=== PATIENT | female | born 1960 | race African-American/Black ===

== ENCOUNTER → 2017-10-24 15:26 | Outpatient (CLI) | payer OTHER, SELFPAY | PROVIDERS: Family Provider Internal Medicine; PCP Internal Medicine; Visit Provider Nurse Practitioner | DX: M25.551 Pain in right hip (principal); M25.561 Pain in right knee | CPT/HCPCS: 73502; 73564 ==

== ENCOUNTER → 2018-01-10 16:05 | Outpatient (CLI) | payer OTHER, SELFPAY | PROVIDERS: Family Provider Internal Medicine; PCP Internal Medicine; Referring Provider Dermatology; Visit Provider Dermatology | DX: L02.821 Furuncle of head [any part, except face] (principal) | CPT/HCPCS: 87070; 87077; 87186; 87205 ==

== ENCOUNTER → 2018-02-23 10:32 | Outpatient (CLI) | payer OTHER, SELFPAY ==
--- OUTSIDE RECORDS SUMMARY | 2018-04-11 05:28 | XMS RPT_ITS ---
:1960 Author Organization OHIP Care Team Providers Name Role Phone NEIDA RADER (CHIEF HUMAN RESOURCES OFFICER) Attending Unavailable GANTA, JEANNIE Attending Unavailable GANTA, JEANNIE Referring Unavailable GANTA, JEANNIE Referring Unavailable GANTA, JEANNIE Referring Unavailable NICK JANE (CHIEF HUMAN RESOURCES OFFICER) Attending Unavailable GANTA, JEANNIE Referring Unavailable NICK JANE ([facility]) Referring Unavailable JOHNNA MORALES (PA) Attending Unavailable GANTA, JEANNIE Referring Unavailable JAMAL PHILLIPS Attending Unavailable JOHNNA MORALES (PA) Referring Unavailable NEIDA RADER (CHIEF HUMAN RESOURCES OFFICER) Referring Unavailable CADEN TRAYLOR (CHIEF HUMAN RESOURCES OFFICER) Referring Unavailable GANTA, JEANNIE Referring Unavailable Miah Andrew Attending Unavailable Miah Andrew Referring Unavailable Ganta, Jeannie Primary Care Unavailable Miah Andrew Attending Unavailable Miah Andrew Referring Unavailable Ganta, Jeannie Primary Care Unavailable Althea Muñoz Attending Unavailable Jeannie Ramirez Primary Care Unavailable Miah Andrew Attending Unavailable Miah Andrew Referring Unavailable Jeannie Ramirez Primary Care Unavailable PROBLEMS PROBLEMS DATE TYPE CONDITION / CODE ATTENDING STATUS SOURCE 03/28/2018 Active Other abnormal and NA Active [facility] inconclusive [facility] [place] findings on Repository diagnostic imaging of breast / R92.8(ICD-10) 03/21/2018 Unknown 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 / Hospital L66.8(ICD-10) Repository 03/21/2018 Unknown L30.8 - Other Miah Andrew Active [place] specified Community dermatitis / Hospital L30.8(ICD-10) Repository 03/21/2018 Unknown L27.0 - Miah Andrew Active [facility] Generalized skin Community eruption due to Hospital drugs and Repository medicaments taken internally / L27.0(ICD-10) 02/24/2018 Active Encounter for NA Active [facility] screening [facility] [place] mammogram for Repository malignant neoplasm of breast / Z12.31(ICD-10) 01/10/2018 Unknown L02.821 - Furuncle Miah Andrew Active [place] of head [any part, Community except face] / Hospital L02.821(ICD-10) Repository 01/10/2018 Unknown 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 Andrew Active [place]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, Community unspecified / Hospital L68.9(ICD-10) Repository 10/24/2017 Unknown M25.561 - Pain in Althea Muñoz Active [place] right knee / Community M25.561(ICD-10) Hospital Repository 10/24/2017 Unknown M25.551 - Pain in Althea Muñoz Active [facility] right hip / Community M25.551(ICD-10) Hospital Repository 06/19/2017 Active Snoring / NA Active [facility] R06.83(ICD-10) Other [place] Repository 06/19/2017 Active Other fatigue / NA Active [facility] R53.83(ICD-10) Other [place] Repository 06/19/2017 Active Menopausal and NA Active [facility] female climacteric Other [place] states / Repository N95.1(ICD-10) 05/03/2017 Active Other retirement NA Active [facility] (current) drug [facility] [place] therapy / Repository Z79.899(ICD-10) 05/03/2017 Active Abnormal weight NA Active [facility] gain / [facility] [place] R63.5(ICD-10) Repository 05/03/2017 Active Xerosis cutis / NA Active [facility] L85.3(ICD-10) [facility] [place] Repository 05/03/2017 Active Pain in right hip NA Active [facility] / M25.551(ICD-10) [facility] [place] Repository 04/08/2017 Active Unknown / DIOR, NEIDA Active [facility] UNK(Unknown) (CHIEF HUMAN RESOURCES OFFICER) [facility] [place] Repository PROCEDURES PROCEDURES No Procedure Records FoundRESULTS RESULTS [facility] Observed: 03/28/2018 Status: F Source: [place] 2:48 PM [facility] REPOSITORY * * *Final Report* * * DATE OF EXAM: Mar 28 2018 2:48PM WRW [id number] - [facility] RT / PROCEDURE REASON: Abnormal mammogram * * * * Physician Interpretation * * * * RESULT: #[id number] - [facility] RT UNILATERAL RIGHT DIGITAL DIAGNOSTIC MAMMOGRAM WITH CAD: 03/28/2018 HISTORY: Callback right / Abnormal Mammogram. RESULT: TECHNIQUE: The study was acquired using full field digital technology and interpreted from soft copy. Current study was also evaluated with a Computer Aided Detection (CAD). Comparison is made to exams dated: 02/24/2018 mammogram, 02/17/2017 mammogram, 02/16/2016 mammogram, and 02/13/2015 mammogram - [facility]. The tissue of right breast is heterogeneously dense. This may lower the sensitivity of mammography. Prior asymmetry is no longer seen in the right breast in the upper aspect. This is consistent with overlapping fibroglandular tissue. No significant masses, calcifications, or other findings are seen in the breast. IMPRESSION: There is no mammographic evidence of malignancy. A 1 year screening mammogram is recommended. Gabi mcintyre/toy:03/28/2018 14:48:00 Hairpiece Stylist(s): Cecilia Romano RT(R)(M), [facility] letter sent: Normal over 40 Mammogram BI-RADS: 1 Negative Multiple national specialty organizations have released breast cancer screening guidelines for women at average risk for developing breast cancer - guidelines that are based on both evidence and opinion, yet differ on when to start and how often to screen for breast cancer. With representation from Breast Imaging, Internal Medicine, Women's Health, Family Medicine, and Medical/Surgical Oncology, the [facility] has carefully reviewed the data and reached the following consensus: 1) All women should engage in shared decision-making with their providers to decide when to start and how often to screen; 2) All women should have the opportunity to start screening mammography at age 40; 3) For women ages 45-55, we recommend annual screening mammograms; 4) For women ages 55 and over, we support both the transition from an annual to a biennial interval if this aligns more with patient's values and preferences, or continuation with annual screening; 5) All women should discuss with their providers when to stop screening mammograms. Fermenter Champagne: Toy Transcribe Date/Time: Mar 28 2018 2:05P Dictated by: GABI HAMMONDS MD This examination was interpreted and the report reviewed and electronically signed by: GABI HAMMONDS MD on Mar 28 2018 2:48PM EST [id number] CNCO Observed: 03/28/2018 Status: COMPLETED Source: [place] 2:[address] [facility] [place] REPOSITORY HNO ID: [id number] Author: Mammography Coordinator Service: (none) Author Type: Physician Type: Letter Filed: 03/29/2018 11:32 PM Note Text: March 28, 2018 PID: [id number] Nena Goins [address] [place] [id number] Dear Ms. Goins, We are pleased to inform you that the results of your recent breast imaging exam on 03/28/2018 are normal. Your mammogram demonstrates that you have dense breast tissue, which could hide abnormalities. Dense breast tissue, in and of itself, is a relatively common condition. Therefore, this information is not provided to cause undue concern; rather, it is to raise your awareness and promote discussion with your health care provider regarding the presence of dense breast tissue in addition to other risk factors. Early detection of cancer is very important. We also understand recommendations regarding breast cancer screening are controversial. Please discuss with your primary care provider which strategy is best for you and whether a mammogram is right for you. Your imaging studies and report will be kept on file at [facility] as part of your permanent medical record and are available for your continuing care. Thank you for allowing us to help in meeting your health care needs. Sincerely, Dr. Hammonds Interpreting Radiologist [facility] (Normal over 40) PROGRESS Observed: 03/28/2018 Status: COMPLETED Source: [place] 2:23 PM [facility] REPOSITORY HNO ID: [id number] Author: Ileana Denton Service: (none) Author Type: (none) Type: Progress Notes Filed: 03/28/2018 2:23 PM Note Text: Radiology Service Progress Note PATIENT NAME: Nena Goins DATE OF SERVICE: March 28, 2018 TIME: 2:23 PM PATIENT IDENTITY VERIFICATION COMPLETED USING TWO (2) METHODS: Patient confirmed name verbally and Date of . PATIENT GENDER DATA: Female. status: : No status: NO. PATIENT RELEVANT IMPLANT DATA REVIEWED: Not Applicable RADIOLOGY DEPARTMENT: [facility] DATA: Not applicable SIGNED BY: Ileana Denton March 28, 2018 2:23 PM PROGRESS Observed: 03/24/2018 Status: COMPLETED Source: [place] 7:30 AM [facility] REPOSITORY HNO ID: [id number] Author: Shirley Salazar Service: (none) Author Type: Nurse Practitioner Type: Progress Notes Filed: 03/24/2018 7:51 AM Note Text: Subjective HPI Nena Goins is a 57 year old female who presents with cough, nasal congestion, sore throat. She has been sick for 2 + weeks. Her boss told her to come in today to be checked due to a frequent cough at work. She cannot wear her CPAP at night due to cough. Review of Systems Constitutional: Positive for fever (yesterday). HENT: Positive for congestion and sore throat. Negative for ear pain. Respiratory: Positive for cough and sputum production. Negative for shortness of breath. Cardiovascular: Negative. Negative for chest pain. Gastrointestinal: Negative. Musculoskeletal: Positive for back pain. Neurological: Positive for headaches. BP 130/90 Pulse 96 Temp 36.3 ?C (97.4 ?F) (Left Tympanic) Resp 16 Wt 94.3 kg (208 lb) SpO2 99% BMI 38.03 kg/m? PAST MEDICAL HISTORY Diagnosis Date - Esophageal reflux PAST SURGICAL HISTORY Procedure Laterality Date - COLONOSCOP W/ OR W/O [facility] SPEC 08/08/14 Colonoscopy - LIGATE FALLOPIAN TUBE Tubal ligation - REMOVAL OF TONSILS,<12 Y/O Tonsillectomy - REPAIR INCISIONAL HERNIA,REDUCIBLE AGE 7 Hernia repair, incisional - TOTAL ABDOM HYSTERECTOMY 2002 ovaries remain ALLERGIES Patient has no known allergies. MEDICATIONS ibuprofen (MOTRIN) 800 mg tablet TAKE 1 TABLET BY MOUTH EVERY 8 HOURS NEEDED FOR PAIN. TAKE WITH FOOD. COMPOUNDED PRESCRIPTION CPAP supplies Dx: G47.33 naproxen (NAPROSYN) 500 mg tablet Take 500 mg by mouth twice daily with meals. losartan-hydrochlorothiazide (HYZAAR) 50-12.5 mg per tablet Take 1 tablet by mouth once daily. CPAP Initiate Auto PAP @ 5-20 cm of water with humidification. Mask (per patient preference) optional chin strap (if indicated) , filters, tubing, humidifier and lifetime supplies. zolpidem (AMBIEN) 10 mg tab Take 1 tablet by mouth at bedtime as needed (for insomnia) for up to 30 days. clotrimazole (LOTRIMIN, CLOTRIM) 1 % cream Apply 1 application to affected area twice daily. Clotrimazole 1 % spry Apply 1 application to affected area daily at bedtime. cyclobenzaprine (FLEXERIL) 10 mg tablet Take 1 tablet by mouth twice daily as needed. FAMILY HISTORY Problem Relation Age of Onset - Diabetes Mother - Cancer Father cancer of prostate Social History Substance Use Topics - Smoking status: Former Smoker Packs/day: 0.50 Years: 5.00 Types: Cigarettes Quit date: 03/14/2009 - Smokeless tobacco: Never Used - Alcohol use No Objective Physical Exam Constitutional: She is well-developed, well-nourished, and in no distress. HENT: Right Ear: Tympanic membrane, external ear and ear canal normal. Left Ear: Tympanic membrane, external ear and ear canal normal. Nose: Nose normal. No mucosal edema or rhinorrhea. Mouth/Throat: Uvula is midline, oropharynx is clear and moist and mucous membranes are normal. No posterior oropharyngeal edema or posterior oropharyngeal erythema. Cardiovascular: Normal rate and regular rhythm. Pulmonary/Chest: Effort normal. No respiratory distress. She has decreased breath sounds in the right lower field and the left lower field. She has no wheezes. She has no rales. Frequent cough noted Neurological: She is alert. Skin: Skin is warm and dry. Nursing note and vitals reviewed. ASSESSMENT/PLAN: 1. Acute lower respiratory infection - ICD9: 519.8, ICD10: J22 - GUAIFENESIN 100 MG/5 ML ORAL LIQUID - AMOXICILLIN 400 MG/5 ML ORAL SUSPENSION - Follow-up with your PCP in 3-5 days if symptoms have not improved or sooner if symptoms worsen - Discussed red flags and need for immediate medical evaluation if any occur. - Discussed supportive care treatment with fluids, rest and analgesia. - Discussed expected course of illness Shirley Salazar APRN.CNP CNOV Observed: 03/24/2018 Status: COMPLETED Source: [place] 7:15 AM [facility] REPOSITORY Office Visit (WSTR) NENA GOINS ([id number]) 1960 F CHT Date Time Provider Department 03/24/18 7:15 AM SHIRLEY SALAZAR (ESTELITA) [facility] During your visit today, we recorded the following information about you: Temperature Pulse Respiration Blood pressure 97.4 degrees 96/minute 16/minute 130/90 Weight 94.3 kg Shirley Salazar APRN.CNP 03/24/2018 7:51 AM Signed Subjective HPI Nena Goins is a 57 year old female who presents with cough, nasal congestion, sore throat. She has been sick for 2 + weeks. Her boss told her to come in today to be checked due to a frequent cough at work. She cannot wear her CPAP at night due to cough. Review of Systems Constitutional: Positive for fever (yesterday). HENT: Positive for congestion and sore throat. Negative for ear pain. Respiratory: Positive for cough and sputum production. Negative for shortness of breath. Cardiovascular: Negative. Negative for chest pain. Gastrointestinal: Negative. Musculoskeletal: Positive for back pain. Neurological: Positive for headaches. BP 130/90 Pulse 96 Temp 36.3 ?C (97.4 ?F) (Left Tympanic) Resp 16 Wt 94.3 kg (208 lb) SpO2 99% BMI 38.03 kg/m? PAST MEDICAL HISTORY Diagnosis Date - Esophageal reflux PAST SURGICAL HISTORY Procedure Laterality Date - COLONOSCOP W/ OR W/O [facility] SPEC 08/08/14 Colonoscopy - LIGATE FALLOPIAN TUBE Tubal ligation - REMOVAL OF TONSILS,<12 Y/O Tonsillectomy - REPAIR INCISIONAL HERNIA,REDUCIBLE AGE 7 Hernia repair, incisional - TOTAL ABDOM HYSTERECTOMY 2002 ovaries remain ALLERGIES Patient has no known allergies. MEDICATIONS ibuprofen (MOTRIN) 800 mg tablet TAKE 1 TABLET BY MOUTH EVERY 8 HOURS NEEDED FOR PAIN. TAKE WITH FOOD. COMPOUNDED PRESCRIPTION CPAP supplies Dx: G47.33 naproxen (NAPROSYN) 500 mg tablet Take 500 mg by mouth twice daily with meals. losartan-hydrochlorothiazide (HYZAAR) 50-12.5 mg per tablet Take 1 tablet by mouth once daily. CPAP Initiate Auto PAP @ 5-20 cm of water with humidification. Mask (per patient preference) optional chin strap (if indicated) , filters, tubing, humidifier and lifetime supplies. zolpidem (AMBIEN) 10 mg tab Take 1 tablet by mouth at bedtime as needed (for insomnia) for up to 30 days. clotrimazole (LOTRIMIN, CLOTRIM) 1 % cream Apply 1 application to affected area twice daily. Clotrimazole 1 % spry Apply 1 application to affected area daily at bedtime. cyclobenzaprine (FLEXERIL) 10 mg tablet Take 1 tablet by mouth twice daily as needed. FAMILY HISTORY Problem Relation Age of Onset - Diabetes Mother - Cancer Father cancer of prostate Social History Substance Use Topics - Smoking status: Former Smoker Packs/day: 0.50 Years: 5.00 Types: Cigarettes Quit date: 03/14/2009 - Smokeless tobacco: Never Used - Alcohol use No Objective Physical Exam Constitutional: She is well-developed, well-nourished, and in no distress. HENT: Right Ear: Tympanic membrane, external ear and ear canal normal. Left Ear: Tympanic membrane, external ear and ear canal normal. Nose: Nose normal. No mucosal edema or rhinorrhea. Mouth/Throat: Uvula is midline, oropharynx is clear and moist and mucous membranes are normal. No posterior oropharyngeal edema or posterior oropharyngeal erythema. Cardiovascular: Normal rate and regular rhythm. Pulmonary/Chest: Effort normal. No respiratory distress. She has decreased breath sounds in the right lower field and the left lower field. She has no wheezes. She has no rales. Frequent cough noted Neurological: She is alert. Skin: Skin is warm and dry. Nursing note and vitals reviewed. ASSESSMENT/PLAN: 1. Acute lower respiratory infection - ICD9: 519.8, ICD10: J22 - GUAIFENESIN 100 MG/5 ML ORAL LIQUID - AMOXICILLIN 400 MG/5 ML ORAL SUSPENSION - Follow-up with your PCP in 3-5 days if symptoms have not improved or sooner if symptoms worsen - Discussed red flags and need for immediate medical evaluation if any occur. - Discussed supportive care treatment with fluids, rest and analgesia. - Discussed expected course of illness JÚNIOR Morillo APRN.CNP 03/24/2018 7:41 AM Signed ASSESSMENT/PLAN: 1. Acute lower respiratory infection - ICD9: 519.8, ICD10: J22 - GUAIFENESIN 100 MG/5 ML ORAL LIQUID - AMOXICILLIN 400 MG/5 ML ORAL SUSPENSION - Follow-up with your PCP in 3-5 days if symptoms have not improved or sooner if symptoms worsen - Discussed red flags and need for immediate medical evaluation if any occur. - Discussed supportive care treatment with fluids, rest and analgesia. - Discussed expected course of illness Shirley Salazar APRN.CNP Treatment for Upper Respiratory Tract Infections 1. Drink lots of fluids - at least one gallon of non-caffeinated liquids per day 2. Make sure you are eating well 3. Get plenty of rest - at least 8 hours of sleep per night for adults and more for children We do not have any medications that kill off these viruses. Antibiotics are used to treat bacterial infections; however, they are not active against viral infections. There are some things that might help you feel better, though. 1. Vaporizers, humidifiers, hot showers, and hot fluids help open respiratory and sinus passages 2. Sudafed is a safe and effective decongestant 3. Meagher Nasal [place] may offer relief of nasal and head congestion 4. Vasile's Vapor Rub placed on a hot towel and draped over the head may relieve congestion 5. Tylenol and Advil help control fevers and headaches 6. Salt water gargles help relieve sore throats 7. Chloraceptic spray or throat lozenges may also help relieve sore throat symptoms 8. Robitussin DM will help loosen up secretions and also provide relief from a cough You should see your doctor or return to the Urgent Care if: 1. You have fevers for longer than five days 2. You have fevers above 102 degrees 3. You are still sick after 10 days 4. You have shortness of breath or wheezing 5. After several days you are getting worse rather than better Referring Provider: SELF [200] Allergies As of Date: 03/24/2018 (No Known Allergies) Date Reviewed: 03/24/2018 Reviewed by: Shirley ([facility]) Martin - Fully Assessed Reason for Visit: URI [115] Primary Visit Diagnosis:Acute lower respiratory infection [J22] Order(s):guaiFENesin (ROBITUSSIN) 100 mg/5 mL syrupTake 10 mL by mouth four times daily as needed.Disp: 236 mLRfl: 0 amoxicillin (AMOXIL) 400 mg/5 mL suspensionTake 10 mL orally twice daily for 10 days.Disp: 200 mLRfl: 0 Prescriptions as of 03/24/2018 Sig: IBUPROFEN 800 MG TABLET TAKE 1 TABLET BY MOUTH EVERY * COMPOUNDED PRESCRIPTION CPAP supplies Dx: G47.33 NAPROXEN 500 MG TABLET Take 500 mg by mouth twice da* LOSARTAN 50 MG-HYDROCHLOROTHI* Take 1 tablet by mouth once d* CPAP Initiate Auto PAP @ 5- 20 cm o* ZOLPIDEM 10 MG TABLET Take 1 tablet by mouth at bed* GUAIFENESIN 100 MG/5 ML ORAL * Take 10 mL by mouth four time* AMOXICILLIN 400 MG/5 ML ORAL * Take 10 mL orally twice daily* CLOTRIMAZOLE 1 % TOPICAL CREAM Apply 1 application to affect* Patient not taking: Reported on 12/21/2017 CLOTRIMAZOLE 1 % TOPICAL SPRAY Apply 1 application to affect* Patient not taking: Reported on 12/21/2017 CYCLOBENZAPRINE 10 MG TABLET Take 1 tablet by mouth twice * Problem List As Of Date 03/24/2018 Noted Resolved DYSMENORRHEA [N94.6] SEBORRHEIC KERATOSIS NOS [L82.1] INVALID FOR* SEBORRHEIC KERATOSIS INFLAMED [L82.0] INVALID FOR* CHR SOLAR SKIN DAMAGE NOS [L57.8] INVALID FOR* ESOPHAGEAL REFLUX [K21.9] Obesity [E66.9] INVALID FOR* HLD (hyperlipidaemia) [E78.5] INVALID FOR* Special screening for malignant neoplasms, colo*INVALID FOR*2014 Bilateral low back pain with left-sided sciatic*INVALID FOR* Other instructions from your clinician: ASSESSMENT/PLAN: 1. Acute lower respiratory infection - ICD9: 519.8, ICD10: J22 - GUAIFENESIN 100 MG/5 ML ORAL LIQUID - AMOXICILLIN 400 MG/5 ML ORAL SUSPENSION - Follow-up with your PCP in 3-5 days if symptoms have not improved or sooner if symptoms worsen - Discussed red flags and need for immediate medical evaluation if any occur. - Discussed supportive care treatment with fluids, rest and analgesia. - Discussed expected course of illness Shirley Salazar APRN.CHIEF HUMAN RESOURCES OFFICER Treatment for Upper Respiratory Tract Infections 1. Drink lots of fluids - at least one gallon of non-caffeinated liquids per day 2. Make sure you are eating well 3. Get plenty of rest - at least 8 hours of sleep per night for adults and more for children We do not have any medications that kill off these viruses. Antibiotics are used to treat bacterial infections; however, they are not active against viral infections. There are some things that might help you feel better, though. 1. Vaporizers, humidifiers, hot showers, and hot fluids help open respiratory and sinus passages 2. Sudafed is a safe and effective decongestant 3. Meagher Nasal [place] may offer relief of nasal and head congestion 4. Vasile's Vapor Rub placed on a hot towel and draped over the head may relieve congestion 5. Tylenol and Advil help control fevers and headaches 6. Salt water gargles help relieve sore throats 7. Chloraceptic spray or throat lozenges may also help relieve sore throat symptoms 8. Robitussin DM will help loosen up secretions and also provide relief from a cough You should see your doctor or return to the Urgent Care if: 1. You have fevers for longer than five days 2. You have fevers above 102 degrees 3. You are still sick after 10 days 4. You have shortness of breath or wheezing 5. After several days you are getting worse rather than better Prescriptions ordered this encounter Disp Refills Start End GUAIFENESIN 100 MG/5 ML ORAL LIQUID 236 * 0 03/24/2018 Route: ORAL Sig: Take 10 mL by mouth four times daily as needed. AMOXICILLIN 400 MG/5 ML ORAL SUSPENS* 200 * 0 03/24/2018 Sig: Take 10 mL orally twice daily for 10 days. Letter Text Shirley Salazar APRN.CNP Urgent Care [address] [facility] [address] Dept: [phone] 03/24/2018 Nena Reinosos [address] [facility] [address] To Whom it May Concern: This is to certify that Nena Goins was seen at our office for medical care. Nena may return to work on Tuesday night 03/26/2018. If you have any questions please feel free to call. Sincerely: Shirley Salazar APRN.CHIEF HUMAN RESOURCES OFFICER Encounter Status:Closed by SHIRLEY SALAZAR on 03/24/18 Observed: 03/20/2018 Status: P Source: [place] CULTURE, WOUND 3:35 PM [facility] REPOSITORY Comments: POSTERIOR MID-PARIETAL SCALP Gram Stain Gram Stain Rare Gram positive cocci Rare Red Blood Cells Wound Culture #1,2 AND 3 Possible skin contamination, further Identification and sensitivity will be performed only by physician's request. #4 POSSIBLE FUNGUS - Further studies to follow from [facility] ORGANISM 1: Staphylococcus species Amount Growth Rare ORGANISM 2: Gram positive george Amount Growth Rare ORGANISM 3: Gram positive george Amount Growth Rare ORGANISM 4: Possible Fungus Amount Growth 1+ Performed By: #### [id number] #### [facility] [address] [place], [address] CNCO Observed: 02/24/2018 Status: COMPLETED Source: [place] 9:[address] [facility] REPOSITORY HNO ID: [id number] Author: Mammography Coordinator Service: (none) Author Type: Physician Type: Letter Filed: 02/27/2018 11:32 PM Note Text: February 24, 2018 PID: [id number] Nena Albrightgins [address] [place] [address] Dear Ms. Goins, Your recent breast imaging exam on 02/24/2018 showed a possible finding that requires additional imaging studies for a complete evaluation. Most such findings are probably benign (not cancer). Please call [phone] or EXT: [phone] to schedule an appointment for your additional imaging if you have not already done so. Your mammogram demonstrates that you have dense breast tissue, which could hide abnormalities. Dense breast tissue, in and of itself, is a relatively common condition. Therefore, this information is not provided to cause undue concern; rather, it is to raise your awareness and promote discussion with your health care provider regarding the presence of dense breast tissue in addition to other risk factors. Your breast images and report will be kept on file here as part of your permanent medical record and are available for your continuing care. Thank you for allowing us to help in meeting your health care needs. Sincerely, Dr. Starks Interpreting Radiologist [facility] (Additional imaging) [facility] SCREENING Observed: 02/24/2018 Status: F Source: [place] 8:[address] [facility] [place] REPOSITORY * * *Final Report* * * DATE OF EXAM: Feb 24 2018 8:43AM [facility] [id number] - [facility] SCREENING / PROCEDURE REASON: Encounter for screening mammogram for malignant neoplasm of breast * * * * Physician Interpretation * * * * RESULT: #[id number] - [facility] SCREENING BILATERAL DIGITAL SCREENING MAMMOGRAM WITH CAD: 02/24/2018 HISTORY: Encounter For Screening Mammogram For Malignant Neoplasm Of Breast /Screening Mammogram - patient reports NO breast symptoms /Priors available for comparison. RESULT: TECHNIQUE: The study was acquired using full field digital technology and interpreted from soft copy. Current study was also evaluated with a Computer Aided Detection (CAD). Comparison is made to exams dated: 02/17/2017 mammogram, 02/16/2016 mammogram, 02/13/2015 mammogram, 01/06/2012 mammogram, 01/08/2013 mammogram, and 02/12/2014 mammogram - [facility]. The tissue of both breasts is heterogeneously dense. This may lower the sensitivity of mammography. There is an asymmetry in the right breast middle depth upper region seen on the mediolateral oblique view only. No other significant masses, calcifications, or other findings are seen in either breast. IMPRESSION: INCOMPLETE: NEEDS ADDITIONAL IMAGING EVALUATION The asymmetry in the right breast is indeterminate. Additional views are recommended. Rory Starks M.D. pt/penrad:02/24/2018 09:17:26 Hairpiece Stylist(s): Jaqueline Levy RT(R)(M), [facility] letter sent: Additional Imaging Needed Mammogram BI-RADS: 0 Incomplete: needs additional imaging evaluation If this report indicates you need additional imaging, and it has NOT yet been performed, please call , to schedule. We sincerely thank you for choosing the [facility] for your breast imaging needs. Multiple national specialty organizations have released breast cancer screening guidelines for women at average risk for developing breast cancer - guidelines that are based on both evidence and opinion, yet differ on when to start and how often to screen for breast cancer. With representation from Breast Imaging, Internal Medicine, Women's Health, Family Medicine, and Medical/Surgical Oncology, the [facility] has carefully reviewed the data and reached the following consensus: 1) All women should engage in shared decision-making with their providers to decide when to start and how often to screen; 2) All women should have the opportunity to start screening mammography at age 40; 3) For women ages 45-55, we recommend annual screening mammograms; 4) For women ages 55 and over, we support both the transition from an annual to a biennial interval if this aligns more with patient's values and preferences, or continuation with annual screening; 5) All women should discuss with their providers when to stop screening mammograms. Fermenter Champagne: Toy Transcribe Date/Time: Feb 24 2018 8:27A Dictated by: RORY STARKS MD This examination was interpreted and the report reviewed and electronically signed by: RORY STARKS MD on Feb 24 2018 9:17AM EST [id number] Observed: 02/23/2018 Status: F Source: [place] CULTURE, WOUND 9:30 AM [facility] REPOSITORY Gram Stain Gram Stain 3+ Red Blood Cells Rare White Blood Cells No organisms seen Wound Culture ORGANISM 1: Pseudomonas aeroginosa Amount Growth 2+ Pseudomonas aeroginosa: REACTION Cefepime $ 2 S Ceftazidime *NF 4 S Ciprofloxacin $ <=0.25 S Gentamicin $ 2 S Imipenem *NF 2 S Levofloxacin $ 0.5 S Piperacillin/Tazobactam $$ 8 S Tobramycin $ <=1 S (NF) indicates non-formulary drug at [facility]. Approval by Infectious Disease Specialist required before non-formulary drugs may be ordered and/or dispensed. Performed By: #### [id number] #### [facility] [address] [place], [address] PROGRESS Observed: 02/10/2018 Status: COMPLETED Source: [place] 10:[address] [facility] [place] REPOSITORY HNO ID: [id number] Author: Nitin Box Service: (none) Author Type: Physician Type: Progress Notes Filed: 02/10/2018 10:17 AM Note Text: Patient presents with: Rash HPI: Rash: Location: Right neck below the chin Duration: 1 week Pruritis: Yes Pain: No Change: Turning darker, slight downward spread Bleeding/ulceration/blister/pustule: Small pimples Contacts with rash: No Exposure: New laundry soap. Outdoor exposure: No. Recent illness: No. Treatment: Camphofenique, hydrocortisone MEDICATIONS: ibuprofen (MOTRIN) 800 mg tablet TAKE 1 TABLET BY MOUTH EVERY 8 HOURS NEEDED FOR PAIN. TAKE WITH FOOD. COMPOUNDED PRESCRIPTION CPAP supplies Dx: G47.33 naproxen (NAPROSYN) 500 mg tablet Take 500 mg by mouth twice daily with meals. losartan-hydrochlorothiazide (HYZAAR) 50-12.5 mg per tablet Take 1 tablet by mouth once daily. CPAP Initiate Auto PAP @ 5-20 cm of water with humidification. Mask (per patient preference) optional chin strap (if indicated) , filters, tubing, humidifier and lifetime supplies. zolpidem (AMBIEN) 10 mg tab Take 1 tablet by mouth at bedtime as needed (for insomnia) for up to 30 days. cyclobenzaprine (FLEXERIL) 10 mg tablet Take 1 tablet by mouth twice daily as needed. clotrimazole (LOTRIMIN, CLOTRIM) 1 % cream Apply 1 application to affected area twice daily. Clotrimazole 1 % spry Apply 1 application to affected area daily at bedtime. ALLERGIES: ALLERGIES No Known Allergies VITALS: BP 122/80 Pulse 79 Temp 36.4 ?C (97.6 ?F) (Left Tympanic) Resp 16 Wt 96.2 kg (212 lb) BMI 38.77 kg/m? PHYSICAL EXAM: GEN: pleasant, no acute distress, alert SKIN: 2cm patch right submandibular triangle of neck. Mild hyperpigmentation. Fine scale. Slight hypertrophy at 1/2 of the border. ASSESSMENT/PLAN: 1. Rash - ICD9: 782.1, ICD10: R21 Suspect tinea corporis. - CLOTRIMAZOLE 1 % TOPICAL CREAM x 2 weeks. F/u for re-evaluation if not improving. Nitin Box MD CNOV Observed: 02/10/2018 Status: COMPLETED Source: [place] 10:00 AM [facility] REPOSITORY Office Visit (WSTR) NENA GOINS ([id number]) 1960 F T Date Time Provider Department 02/10/18 10:00 AM NITIN BOX [facility] During your visit today, we recorded the following information about you: Temperature Pulse Respiration Blood pressure 97.6 degrees 79/minute 16/minute 122/80 Weight 96.2 kg Nitin Box MD 02/10/2018 10:17 AM Signed Patient presents with: Rash HPI: Rash: Location: Right neck below the chin Duration: 1 week Pruritis: Yes Pain: No Change: Turning darker, slight downward spread Bleeding/ulceration/blister/pustule: Small pimples Contacts with rash: No Exposure: New laundry soap. Outdoor exposure: No. Recent illness: No. Treatment: Camphofenique, hydrocortisone MEDICATIONS: ibuprofen (MOTRIN) 800 mg tablet TAKE 1 TABLET BY MOUTH EVERY 8 HOURS NEEDED FOR PAIN. TAKE WITH FOOD. COMPOUNDED PRESCRIPTION CPAP supplies Dx: G47.33 naproxen (NAPROSYN) 500 mg tablet Take 500 mg by mouth twice daily with meals. losartan-hydrochlorothiazide (HYZAAR) 50-12.5 mg per tablet Take 1 tablet by mouth once daily. CPAP Initiate Auto PAP @ 5-20 cm of water with humidification. Mask (per patient preference) optional chin strap (if indicated) , filters, tubing, humidifier and lifetime supplies. zolpidem (AMBIEN) 10 mg tab Take 1 tablet by mouth at bedtime as needed (for insomnia) for up to 30 days. cyclobenzaprine (FLEXERIL) 10 mg tablet Take 1 tablet by mouth twice daily as needed. clotrimazole (LOTRIMIN, CLOTRIM) 1 % cream Apply 1 application to affected area twice daily. Clotrimazole 1 % spry Apply 1 application to affected area daily at bedtime. ALLERGIES: ALLERGIES No Known Allergies VITALS: BP 122/80 Pulse 79 Temp 36.4 ?C (97.6 ?F) (Left Tympanic) Resp 16 Wt 96.2 kg (212 lb) BMI 38.77 kg/m? PHYSICAL EXAM: GEN: pleasant, no acute distress, alert SKIN: 2cm patch right submandibular triangle of neck. Mild hyperpigmentation. Fine scale. Slight hypertrophy at 1/2 of the border. ASSESSMENT/PLAN: 1. Rash - ICD9: 782.1, ICD10: R21 Suspect tinea corporis. - CLOTRIMAZOLE 1 % TOPICAL CREAM x 2 weeks. F/u for re-evaluation if not improving. Nitin Box MD Referring Provider: SELF [200] Allergies As of Date: 02/10/2018 (No Known Allergies) Date Reviewed: 02/10/2018 Reviewed by: Elizabeth Virk Ma - Fully Assessed Reason for Visit: Rash [1087] Primary Visit Diagnosis:Rash [R21] Order(s):clotrimazole (LOTRIMIN, CLOTRIM) 1 % creamApply 1 application to affected area twice daily for 14 days.Disp: 14 gRfl: 0 Prescriptions as of 02/10/2018 Sig: IBUPROFEN 800 MG TABLET TAKE 1 TABLET BY MOUTH EVERY * COMPOUNDED PRESCRIPTION CPAP supplies Dx: G47.33 NAPROXEN 500 MG TABLET Take 500 mg by mouth twice da* LOSARTAN 50 MG-HYDROCHLOROTHI* Take 1 tablet by mouth once d* CPAP Initiate Auto PAP @ 5- 20 cm o* ZOLPIDEM 10 MG TABLET Take 1 tablet by mouth at bed* CYCLOBENZAPRINE 10 MG TABLET Take 1 tablet by mouth twice * CLOTRIMAZOLE 1 % TOPICAL CREAM Apply 1 application to affect* CLOTRIMAZOLE 1 % TOPICAL CREAM Apply 1 application to affect* Patient not taking: Reported on 12/21/2017 CLOTRIMAZOLE 1 % TOPICAL SPRAY Apply 1 application to affect* Patient not taking: Reported on 12/21/2017 Problem List As Of Date 02/10/2018 Noted Resolved DYSMENORRHEA [N94.6] SEBORRHEIC KERATOSIS NOS [L82.1] INVALID FOR* SEBORRHEIC KERATOSIS INFLAMED [L82.0] INVALID FOR* CHR SOLAR SKIN DAMAGE NOS [L57.8] INVALID FOR* ESOPHAGEAL REFLUX [K21.9] Obesity [E66.9] INVALID FOR* HLD (hyperlipidaemia) [E78.5] INVALID FOR* Special screening for malignant neoplasms, colo*INVALID FOR*2014 Bilateral low back pain with left-sided sciatic*INVALID FOR* Prescriptions ordered this encounter Disp Refills Start End CLOTRIMAZOLE 1 % TOPICAL CREAM 14 g 0 02/10/2018 02/24/2018 Route: TOPICAL Sig: Apply 1 application to affected area twice daily for 14 days. Encounter Status:Closed by NITIN BOX MD on 02/10/18 Observed: 01/10/2018 Status: F Source: [place] CULTURE, WOUND 2:15 PM [facility] REPOSITORY Gram Stain Gram Stain No organisms seen Wound Culture Clinical correlation necessary, Possible skin contamination. ORGANISM 1: Staphylococcus epidermidis Amount Growth 1+ Staphylococcus epidermidis: REACTION Benzylpenicillin NF >=0.5 R Cefoxitin *NF + Clindamycin $$ <=0.25 S Inducable Clindamycin Resistan - Erythromycin $ >=8 R Gentamicin $ <=0.5 S Levofloxacin $ <=0.12 S Linezolid $$$$ 1 S Oxacillin NF >=4 R Tigecycline $$$$ <=0.12 S Rifampin $$ <=0.5 S Tetracycline NF 2 S Vancomycin $ 1 S (NF) indicates non-formulary drug at [facility]. Approval by Infectious Disease Specialist required before non-formulary drugs may be ordered and/or dispensed. * CLSI guidelines does not recommend testing of cephalosporins. This interpretation is deduced from Beta-lactam/penicillin results. Performed By: #### [id number] #### [facility] [address] [place], [address] [facility] Observed: 01/04/2018 Status: COMPLETED Source: [place] 12:00 AM [facility] REPOSITORY Telephone (INTMWS) NENA GOINS ([id number]) 1960 F CHT Date Time Provider Department 01/04/18 JEANNIE RAMIREZ INTMWS During your visit today, we recorded the following information about you: Tamiko Torrez LPN 01/04/2018 9:53 AM Signed [facility] calling. Stating that patient requested CPAP supplies from them. They do not have a current order for patient and are asking that an order be faxed along with patients demographics to [phone], att: In take. Please advise. JEANNIE RAMIREZ MD 01/04/2018 1:07 PM Signed Filed order Thank you uAdrey Jurado LPN 01/04/2018 1:57 PM Signed Needing order for Cpap supplies only, order pending. Edgar Spangler LPN 01/04/2018 5:05 PM Signed order and demographics faxed to number given. Edgar Spangler LPN 01/05/2018 9:13 AM Signed Order for CPAP supplies faxed to number given Edgar Skinner, RN, RN 01/05/2018 10:59 AM Signed Pt calls, asking is orders have been faxed. Advised order was faxed this morning. Pt verbalizes understanding. Allergies As of Date: 01/04/2018 (No Known Allergies) Date Reviewed: 12/21/2017 Reviewed by: Alexa Smith Ma - Fully Assessed Reason for Visit: Orders [681] Visit Diagnosis:SARA (obstructive sleep apnea) [G47.33] Order(s):CPAP DEVICE, WITH HUMIDIFIER [[id number]] Order #: [id number] COMPOUNDED PRESCRIPTIONCPAP supplies Dx: G47.33Disp: 1 BoxRfl: 99 Prescriptions as of 01/04/2018 Sig: COMPOUNDED PRESCRIPTION CPAP supplies Dx: G47.33 NAPROXEN 500 MG TABLET Take 500 mg by mouth twice da* IBUPROFEN 800 MG TABLET TAKE 1 TABLET BY MOUTH EVERY * LOSARTAN 50 MG-HYDROCHLOROTHI* Take 1 tablet by mouth once d* CLOTRIMAZOLE 1 % TOPICAL CREAM Apply 1 application to affect* Patient not taking: Reported on 12/21/2017 CLOTRIMAZOLE 1 % TOPICAL SPRAY Apply 1 application to affect* Patient not taking: Reported on 12/21/2017 CPAP Initiate Auto PAP @ 5- 20 cm o* ZOLPIDEM 10 MG TABLET Take 1 tablet by mouth at bed* CYCLOBENZAPRINE 10 MG TABLET Take 1 tablet by mouth twice * Problem List As Of Date 01/04/2018 Noted Resolved DYSMENORRHEA [N94.6] SEBORRHEIC KERATOSIS NOS [L82.1] INVALID FOR* SEBORRHEIC KERATOSIS INFLAMED [L82.0] INVALID FOR* CHR SOLAR SKIN DAMAGE NOS [L57.8] INVALID FOR* ESOPHAGEAL REFLUX [K21.9] Obesity [E66.9] INVALID FOR* HLD (hyperlipidaemia) [E78.5] INVALID FOR* Special screening for malignant neoplasms, colo*INVALID FOR*2014 Bilateral low back pain with left-sided sciatic*INVALID FOR* Prescriptions ordered this encounter Disp Refills Start End COMPOUNDED PRESCRIPTION 1 Box 99 01/04/2018 Class: Print RX Sig: CPAP supplies Dx: G47.33 Encounter Status:Closed by EDGAR SPANGLER LPN on 01/05/18 PROGRESS Observed: 12/21/2017 Status: COMPLETED Source: [place] 10:[address] [facility] [place] REPOSITORY HNO ID: [id number] Author: Jamal Phillips V Service: (none) Author Type: Physician Type: Progress Notes Filed: 12/21/2017 10:29 AM Note Text: JOHNNA MORALES PA-C [address] [facility] [address] Ms. Goins is a 57 year old female that presents today complaining of hip problems on the right side for the last 9 months. She claims that there is no specific incident that brought on this pain. The pain is described as chronic located in the buttocks and outer aspect of the hip. Patient states that her pain level is a number 7 on a scale of 1-10 Denies low back pain. Patient reports difficulty with standing and walking. ALLERGIES: Patient has no known allergies. MEDICATIONS: Current Outpatient Prescriptions: naproxen (NAPROSYN) 500 mg tablet Take 500 mg by mouth twice daily with meals. ibuprofen (MOTRIN) 800 mg tablet TAKE 1 TABLET BY MOUTH EVERY 8 HOURS NEEDED FOR PAIN. TAKE WITH FOOD. losartan-hydrochlorothiazide (HYZAAR) 50-12.5 mg per tablet Take 1 tablet by mouth once daily. CPAP Initiate Auto PAP @ 5-20 cm of water with humidification. Mask (per patient preference) optional chin strap (if indicated) , filters, tubing, humidifier and lifetime supplies. zolpidem (AMBIEN) 10 mg tab Take 1 tablet by mouth at bedtime as needed (for insomnia) for up to 30 days. cyclobenzaprine (FLEXERIL) 10 mg tablet Take 1 tablet by mouth twice daily as needed. clotrimazole (LOTRIMIN, CLOTRIM) 1 % cream Apply 1 application to affected area twice daily. (Patient not taking: Reported on 12/21/2017 ) Clotrimazole 1 % spry Apply 1 application to affected area daily at bedtime. (Patient not taking: Reported on 12/21/2017 ) No current facility-administered medications for this visit. MEDICAL HISTORY: PAST MEDICAL HISTORY Diagnosis Date - Esophageal reflux SURGICAL HISTORY: PAST SURGICAL HISTORY Procedure Laterality Date - COLONOSCOP W/ OR W/O [facility] SPEC 08/08/14 Colonoscopy - LIGATE FALLOPIAN TUBE Tubal ligation - REMOVAL OF TONSILS,<12 Y/O Tonsillectomy - REPAIR INCISIONAL HERNIA,REDUCIBLE AGE 7 Hernia repair, incisional - TOTAL ABDOM HYSTERECTOMY 2003 ovaries remain FAMILY HISTORY: FAMILY HISTORY Problem Relation Age of Onset - Diabetes Mother - Cancer Father cancer of prostate SOCIAL HISTORY: Social History Marital status: Spouse name: Gold Years of education: Number of children: 1 Occupational History Occupation Employer Comment [employer]* Social History Main Topics Smoking status: Former Smoker Packs/day: 0.50 Years: 5.00 Types: Cigarettes Quit date: 03/14/2009 Smokeless tobacco: Never Used Alcohol use: No Drug use: No Sexual activity: Yes Partners with: Male control/protection: Tubal Ligation, Surgical Comment: hysterectomy PHYSICAL ASSESSMENT: The Pt walks with a normal gait B/l LE have Nl Alignment The Left hip reveals no hip flexion contracture, 0-100 degrees of flexion, Internal Rotation to 20 degrees in flexion and external rotation to 45 degrees in flexion. Abduction to 45 degrees and adduction to 20 degrees. There is no pain with palpation over the ischial tuberosity or the greater trochanter. The Right hip reveals no hip flexion contracture, 0-100 degrees of flexion, Internal Rotation to 20 degrees in flexion and external rotation to 45 degrees in flexion. Abduction to 45 degrees and adduction to 20 degrees. There is pain with palpation over the posterior aspect of the greater trochanter and gluteus medius tendon insertion. EHL 5/5 DF 5/5 PF 5/5 DP Pulses 2/2 PT Pulses 2/2 RADIOGRAPH: no acute abnormality noted ASSESSMENT: gluteus medius tendonitis right hip PLAN: Physical exam reviewed there are no apparent changes since last visit. Risks, benefits, alternatives and personnel discussed with patient who consents to proceed. Patient wished to proceed. 6 mg celestone with 2cc, 1% lidocaine and 2cc .5% marcaine was injected. Injection was carried out under sterile conditions through a POSTERIOR site into the trochanteric bursae. Patient had no immediate complications and tolerated the procedure well. Handout given for home stretching and strengthening exercises for hip conditioning. Jamal Phillips DO PROGRESS Observed: 12/21/2017 Status: COMPLETED Source: [place] 9:50 AM [facility] REPOSITORY [facility] ID: [id number] Author: Alexa Smith Ma Service: (none) Author Type: (none) Type: Progress Notes Filed: 12/21/2017 10:29 AM Note Text: Patient presents with: New Patient: Right hip pain - Ref. Johnna CROWELL ROOMING INTAKE FLOWSHEET DATA Risk Screening Do you have concerns about personal safety or safety in the home?: No Pain Pain Score: 7/10 Pain Location: Hip-Right Description: Sharp, Aching Duration Amount of Time: 9 Duration Units: Months Frequency: Continuous Intervention: Medication Patient states she is having lateral right hip pain that is radiating down her leg. Referred here for an injection. Taking Naprosyn for the pain helps dull the pain. X-rays done on 05/03/17. 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 CNOV Observed: 12/21/2017 Status: COMPLETED Source: [place] 9:[address] [facility] [place] REPOSITORY Office Visit () NENA GOINS ([id number]) 1960 [facility] Date Time Provider Department 12/21/17 9:40 AM JAMAL PHILLIPS During your visit today, we recorded the following information about you: Alexa Smith Ma 12/21/2017 10:29 AM Signed Patient presents with: New Patient: Right hip pain - Ref. Johnna Morales AMB ROOMING INTAKE FLOWSHEET DATA Risk Screening Do you have concerns about personal safety or safety in the home?: No Pain Pain Score: 7/10 Pain Location: Hip-Right Description: Sharp, Aching Duration Amount of Time: 9 Duration Units: Months Frequency: Continuous Intervention: Medication Patient states she is having lateral right hip pain that is radiating down her leg. Referred here for an injection. Taking Naprosyn for the pain helps dull the pain. X-rays done on 05/03/17. 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 Jamal Phillips DO 12/21/2017 10:29 AM Signed JOHNNA MORALES PA-C [address] [facility] [address] Ms. Goins is a 57 year old female that presents today complaining of hip problems on the right side for the last 9 months. She claims that there is no specific incident that brought on this pain. The pain is described as chronic located in the buttocks and outer aspect of the hip. Patient states that her pain level is a number 7 on a scale of 1-10 Denies low back pain. Patient reports difficulty with standing and walking. ALLERGIES: Patient has no known allergies. MEDICATIONS: Current Outpatient Prescriptions: naproxen (NAPROSYN) 500 mg tablet Take 500 mg by mouth twice daily with meals. ibuprofen (MOTRIN) 800 mg tablet TAKE 1 TABLET BY MOUTH EVERY 8 HOURS NEEDED FOR PAIN. TAKE WITH FOOD. losartan-hydrochlorothiazide (HYZAAR) 50-12.5 mg per tablet Take 1 tablet by mouth once daily. CPAP Initiate Auto PAP @ 5-20 cm of water with humidification. Mask (per patient preference) optional chin strap (if indicated) , filters, tubing, humidifier and lifetime supplies. zolpidem (AMBIEN) 10 mg tab Take 1 tablet by mouth at bedtime as needed (for insomnia) for up to 30 days. cyclobenzaprine (FLEXERIL) 10 mg tablet Take 1 tablet by mouth twice daily as needed. clotrimazole (LOTRIMIN, CLOTRIM) 1 % cream Apply 1 application to affected area twice daily. (Patient not taking: Reported on 12/21/2017 ) Clotrimazole 1 % spry Apply 1 application to affected area daily at bedtime. (Patient not taking: Reported on 12/21/2017 ) No current facility-administered medications for this visit. MEDICAL HISTORY: PAST MEDICAL HISTORY Diagnosis Date - Esophageal reflux SURGICAL HISTORY: PAST SURGICAL HISTORY Procedure Laterality Date - COLONOSCOP W/ OR W/O [facility] SPEC 08/08/14 Colonoscopy - LIGATE FALLOPIAN TUBE Tubal ligation - REMOVAL OF TONSILS,<12 Y/O Tonsillectomy - REPAIR INCISIONAL HERNIA,REDUCIBLE AGE 7 Hernia repair, incisional - TOTAL ABDOM HYSTERECTOMY 2002 ovaries remain FAMILY HISTORY: FAMILY HISTORY Problem Relation Age of Onset - Diabetes Mother - Cancer Father cancer of prostate SOCIAL HISTORY: Social History Marital status: Spouse name: Gold Years of education: Number of children: 1 Occupational History Occupation Employer Comment [employer] P* Social History Main Topics Smoking status: Former Smoker Packs/day: 0.50 Years: 5.00 Types: Cigarettes Quit date: 03/14/2009 Smokeless tobacco: Never Used Alcohol use: No Drug use: No Sexual activity: Yes Partners with: Male control/protection: Tubal Ligation, Surgical Comment: hysterectomy PHYSICAL ASSESSMENT: The Pt walks with a normal gait B/l LE have Nl Alignment The Left hip reveals no hip flexion contracture, 0-100 degrees of flexion, Internal Rotation to 20 degrees in flexion and external rotation to 45 degrees in flexion. Abduction to 45 degrees and adduction to 20 degrees. There is no pain with palpation over the ischial tuberosity or the greater trochanter. The Right hip reveals no hip flexion contracture, 0-100 degrees of flexion, Internal Rotation to 20 degrees in flexion and external rotation to 45 degrees in flexion. Abduction to 45 degrees and adduction to 20 degrees. There is pain with palpation over the posterior aspect of the greater trochanter and gluteus medius tendon insertion. EHL 5/5 DF 5/5 PF 5/5 DP Pulses 2/2 PT Pulses 2/2 RADIOGRAPH: no acute abnormality noted ASSESSMENT: gluteus medius tendonitis right hip PLAN: Physical exam reviewed there are no apparent changes since last visit. Risks, benefits, alternatives and personnel discussed with patient who consents to proceed. Patient wished to proceed. 6 mg celestone with 2cc, 1% lidocaine and 2cc .5% marcaine was injected. Injection was carried out under sterile conditions through a POSTERIOR site into the trochanteric bursae. Patient had no immediate complications and tolerated the procedure well. Handout given for home stretching and strengthening exercises for hip conditioning. Jamal Phillips DO Referring Provider: JOHNNA MORALES(INGA) [[id number]] Allergies As of Date: 12/21/2017 (No Known Allergies) Date Reviewed: 12/21/2017 Reviewed by: Alexa Smith Ma - Fully Assessed Reason for Visit: New Patient [172] Cmt: Right hip pain - Ref. Johnna Morales Primary Visit Diagnosis:Tendinopathy of right gluteus medius [M67.98] Order(s):[] betamethasone acetate-betamethasone sodium phosphate 6 mg injection (CELESTONE)Disp: Rfl: Prescriptions as of 12/21/2017 Sig: NAPROXEN 500 MG TABLET Take 500 mg by mouth twice da* IBUPROFEN 800 MG TABLET TAKE 1 TABLET BY MOUTH EVERY * LOSARTAN 50 MG-HYDROCHLOROTHI* Take 1 tablet by mouth once d* CPAP Initiate Auto PAP @ 5- 20 cm o* ZOLPIDEM 10 MG TABLET Take 1 tablet by mouth at bed* CYCLOBENZAPRINE 10 MG TABLET Take 1 tablet by mouth twice * CLOTRIMAZOLE 1 % TOPICAL CREAM Apply 1 application to affect* Patient not taking: Reported on 12/21/2017 CLOTRIMAZOLE 1 % TOPICAL SPRAY Apply 1 application to affect* Patient not taking: Reported on 12/21/2017 Problem List As Of Date 12/21/2017 Noted Resolved DYSMENORRHEA [N94.6] SEBORRHEIC KERATOSIS NOS [L82.1] INVALID FOR* SEBORRHEIC KERATOSIS INFLAMED [L82.0] INVALID FOR* CHR SOLAR SKIN DAMAGE NOS [L57.8] INVALID FOR* ESOPHAGEAL REFLUX [K21.9] Obesity [E66.9] INVALID FOR* HLD (hyperlipidaemia) [E78.5] INVALID FOR* Special screening for malignant neoplasms, colo*INVALID FOR*2014 Bilateral low back pain with left-sided sciatic*INVALID FOR* Prescriptions ordered this encounter Disp Refills Start End BETAMETHASONE ACETATE AND SODIUM BENSON* 12/21/2017 12/21/2017 Route: OTHER Encounter Status:Closed by JAMAL PHILLIPS DO, V on 12/21/17 PROGRESS Observed: 12/16/2017 Status: COMPLETED Source: [place] 2:[address] [facility] [place] REPOSITORY HNO ID: [id number] Author: Susan Morales Service: (none) Author Type: Physician Automatic Pattern Edger Type: Progress Notes Filed: 12/16/2017 3:10 PM Note Text: 12/16/2017 Patient presents with: Pain: Patient is here for right hip pain SUBJECTIVE: This is a 57 year old that is here today for Above Complaints.. Patient with chronic R hip pain for about 2 years Has seen PCP for this. Would like to get FMLA for intermittent leave due to pain. Once a week if needed Started Physical Therapy years ago but didn't stick with it. She works 12 hour shifts and some days the pain becomes unbearable. PAST MEDICAL HISTORY Diagnosis Date - Esophageal reflux ALLERGIES Patient has no known allergies. MEDICATIONS Current Outpatient Prescriptions: ibuprofen (MOTRIN) 800 mg tablet TAKE 1 TABLET BY MOUTH EVERY 8 HOURS NEEDED FOR PAIN. TAKE WITH FOOD. losartan-hydrochlorothiazide (HYZAAR) 50-12.5 mg per tablet Take 1 tablet by mouth once daily. clotrimazole (LOTRIMIN, CLOTRIM) 1 % cream Apply 1 application to affected area twice daily. Clotrimazole 1 % spry Apply 1 application to affected area daily at bedtime. CPAP Initiate Auto PAP @ 5-20 cm of water with humidification. Mask (per patient preference) optional chin strap (if indicated) , filters, tubing, humidifier and lifetime supplies. zolpidem (AMBIEN) 10 mg tab Take 1 tablet by mouth at bedtime as needed (for insomnia) for up to 30 days. cyclobenzaprine (FLEXERIL) 10 mg tablet Take 1 tablet by mouth twice daily as needed. No current facility-administered medications for this visit. SOCIAL HISTORY Social History Marital status: Spouse name: Gold Years of education: Number of children: 1 Occupational History Occupation Employer Comment [employer] Social History Main Topics Smoking status: Former Smoker Packs/day: 0.50 Years: 5.00 Types: Cigarettes Quit date: 03/14/2009 Smokeless tobacco: Never Used Alcohol use: No Drug use: No Sexual activity: Yes Partners with: Male control/protection: Tubal Ligation, Surgical Comment: hysterectomy REVIEW OF SYSTEMS All other reviewed and negative other than HPI. OBJECTIVE: BP 138/80 Pulse 84 Resp 14 Wt 95.3 kg (210 lb) BMI 38.40 kg/m? APPEARANCE Well appearing, alert, in no acute distress, well-hydrated, well nourished. and Obese BACK: Normal exam, good flexion and extension, negative SLR test, tender over sacroiliac right EXTREMITIES Extremities normal, No deformities, No skin discoloration, No edema and Normal pulses bilaterally. NEURO Awake, alert and oriented x 3, Cranial nerves II-XII grossly intact, Reflexes symmetrical, Normal gait and No involuntary motions. ASSESSMENT/PLAN: 1. Chronic right hip pain - ICD9: 719.45, 338.29, ICD10: M25.551, G89.29 (primary diagnosis) Return to Physical Therapy Consult Ortho for other treatment options - CONSULT TO ORTHOPAEDICS - CONSULT TO PHYSICAL THERAPY 2. Chronic bilateral low back pain with right-sided sciatica - ICD9: 724.2, 724.3, 338.29, ICD10: M54.41, G89.29 Chronic low back pain See above - CONSULT TO PHYSICAL THERAPY Follow up as needed. INGA FRIAS Observed: 12/16/2017 Status: COMPLETED Source: [place] 2:40 PM [facility] REPOSITORY [facility] SHANAENENA Susie ([id number]) 1960 F [facility] Date Time Provider Department 12/16/17 2:40 PM EMMA MORALES) ESMER During your visit today, we recorded the following information about you: Pulse Respiration Blood pressure Weight 84/minute 14/minute 138/80 95.3 kg JOHNNA MORALES PA-C 12/16/2017 3:10 PM Signed 12/16/2017 Patient presents with: Pain: Patient is here for right hip pain SUBJECTIVE: This is a 57 year old that is here today for Above Complaints.. Patient with chronic R hip pain for about 2 years Has seen PCP for this. Would like to get FMLA for intermittent leave due to pain. Once a week if needed Started Physical Therapy years ago but didn't stick with it. She works 12 hour shifts and some days the pain becomes unbearable. PAST MEDICAL HISTORY Diagnosis Date - Esophageal reflux ALLERGIES Patient has no known allergies. MEDICATIONS Current Outpatient Prescriptions: ibuprofen (MOTRIN) 800 mg tablet TAKE 1 TABLET BY MOUTH EVERY 8 HOURS NEEDED FOR PAIN. TAKE WITH FOOD. losartan-hydrochlorothiazide (HYZAAR) 50-12.5 mg per tablet Take 1 tablet by mouth once daily. clotrimazole (LOTRIMIN, CLOTRIM) 1 % cream Apply 1 application to affected area twice daily. Clotrimazole 1 % spry Apply 1 application to affected area daily at bedtime. CPAP Initiate Auto PAP @ 5-20 cm of water with humidification. Mask (per patient preference) optional chin strap (if indicated) , filters, tubing, humidifier and lifetime supplies. zolpidem (AMBIEN) 10 mg tab Take 1 tablet by mouth at bedtime as needed (for insomnia) for up to 30 days. cyclobenzaprine (FLEXERIL) 10 mg tablet Take 1 tablet by mouth twice daily as needed. No current facility-administered medications for this visit. SOCIAL HISTORY Social History Marital status: Spouse name: Gold Years of education: Number of children: 1 Occupational History Occupation Employer Comment [employer]* Social History Main Topics Smoking status: Former Smoker Packs/day: 0.50 Years: 5.00 Types: Cigarettes Quit date: 03/14/2009 Smokeless tobacco: Never Used Alcohol use: No Drug use: No Sexual activity: Yes Partners with: Male control/protection: Tubal Ligation, Surgical Comment: hysterectomy REVIEW OF SYSTEMS All other reviewed and negative other than HPI. OBJECTIVE: BP 138/80 Pulse 84 Resp 14 Wt 95.3 kg (210 lb) BMI 38.40 kg/m? APPEARANCE Well appearing, alert, in no acute distress, well- hydrated, well nourished. and Obese BACK: Normal exam, good flexion and extension, negative SLR test, tender over sacroiliac right EXTREMITIES Extremities normal, No deformities, No skin discoloration, No edema and Normal pulses bilaterally. NEURO Awake, alert and oriented x 3, Cranial nerves II-XII grossly intact, Reflexes symmetrical, Normal gait and No involuntary motions. ASSESSMENT/PLAN: 1. Chronic right hip pain - ICD9: 719.45, 338.29, ICD10: M25.551, G89.29 (primary diagnosis) Return to Physical Therapy Consult Ortho for other treatment options - CONSULT TO ORTHOPAEDICS - CONSULT TO PHYSICAL THERAPY 2. Chronic bilateral low back pain with right-sided sciatica - ICD9: 724.2, 724.3, 338.29, ICD10: M54.41, G89.29 Chronic low back pain See above - CONSULT TO PHYSICAL THERAPY Follow up as needed. JOHNNA MORALES PA-C Referring Provider: JEANNIE RAMIREZ [[id number]] Allergies As of Date: 12/16/2017 (No Known Allergies) Date Reviewed: 12/16/2017 Reviewed by: Stacie Patel Ma - Fully Assessed Reason for Visit: Pain [78] Cmt: Patient is here for right hip pain Primary Visit Diagnosis:Chronic right hip pain [M25.551, G89.29] Other Visit Diagnosis:Chronic bilateral low back pain with right-sided sciatica [M54.41, G89.29] Order(s):CONSULT TO ORTHOPAEDICS [9026] Order #: [id number]: 1 CONSULT TO PHYSICAL THERAPY [9032] Order #: [id number]: 1 Prescriptions as of 12/16/2017 Sig: IBUPROFEN 800 MG TABLET TAKE 1 TABLET BY MOUTH EVERY * LOSARTAN 50 MG-HYDROCHLOROTHI* Take 1 tablet by mouth once d* CLOTRIMAZOLE 1 % TOPICAL CREAM Apply 1 application to affect* CLOTRIMAZOLE 1 % TOPICAL SPRAY Apply 1 application to affect* CPAP Initiate Auto PAP @ 5- 20 cm o* ZOLPIDEM 10 MG TABLET Take 1 tablet by mouth at bed* CYCLOBENZAPRINE 10 MG TABLET Take 1 tablet by mouth twice * Problem List As Of Date 12/16/2017 Noted Resolved DYSMENORRHEA [N94.6] SEBORRHEIC KERATOSIS NOS [L82.1] INVALID FOR* SEBORRHEIC KERATOSIS INFLAMED [L82.0] INVALID FOR* CHR SOLAR SKIN DAMAGE NOS [L57.8] INVALID FOR* ESOPHAGEAL REFLUX [K21.9] Obesity [E66.9] INVALID FOR* HLD (hyperlipidaemia) [E78.5] INVALID FOR* Special screening for malignant neoplasms, colo*INVALID FOR*2014 Bilateral low back pain with left-sided sciatic*INVALID FOR* Disposition: Return if symptoms worsen or fail to improve. Follow-up and Disposition History Recorded Letter Text [facility] [address] [address] TO WHOM IT MAY CONCERN: This is to confirm that Nena Goins had an appointment and was seen at the [facility] in the Department of Family Medicine Johnna Morales PA-C on 12/16/2017. Please excuse her from work for this afternoon. Sincerely yours, Johnna Morales PA-C Encounter Status:Closed by JOHNNA GARCIA on 12/16/17 KNEE 4 OR MORE Observed: 10/24/2017 Status: F Source: [place] VIEWS 3:32 PM [facility] REPOSITORY [facility] Imaging Services [address] [place] [address] Knee 4 or More Views MR#: [id number] Acct: [id number] Name: GOINS,NENA J Rep #: [id number] : 1960 F 57 From: Steven Llamas DO PCP: Jeannie Ramirez MD Status: REG CLI Study: Knee 4 or More Views Date of Exam: 10/24/17 Exam# [id number] Ordering Dr: Althea Muñoz STUDY: X-RAY - RIGHT KNEE REASON FOR EXAM: Female, 57 years old. Pain TECHNIQUE: 4 view(s) of the knee. COMPARISON: None. FINDINGS: Normal visualized distal femur. Normal visualized proximal tibia and fibula. Normal proximal tibiofibular articulation. Normal medial femorotibial compartment. Normal lateral femorotibial compartment. Normal patellofemoral articulation. The soft tissue structures are unremarkable. RAD/Knee 4 or More Views IMPRESSION: Normal x-ray examination of the knee. Electronically Signed: Steven Llamas DO at 23:32 EDT Tel [phone], Service support , CC: Althea Muñoz LANDSCAPING SUPERVISOR; Jeannie Ramirez MD Fermenter Champagne: Signed HIP, UNI W/ PELVIS Observed: 10/24/2017 Status: F Source: [place] 2-3 VIEWS 3:32 PM [facility] REPOSITORY [facility] Imaging Services [address] [place] [id number] HIP, UNI W/ Pelvis 2-3 Views MR#: [id number] Acct: [id number] Name: NENA GOINS Rep #: [id number] : 1960 F 57 From: Steven Llamas DO PCP: Jeannie Ramirez MD Status: REG CLI Study: HIP, UNI W/ Pelvis 2-3 Views Date of Exam: 10/24/17 Exam# [id number] Ordering Dr: Althea Muñoz STUDY: X-RAY - PELVIS AND RIGHT HIP REASON FOR EXAM: Female, 57 years old. Hip pain TECHNIQUE: Radiological exam, hip, unilateral, with pelvis when performed; 2 or 3 views. COMPARISON: None. FINDINGS: There is a non-specific bowel gas pattern. Normal visualized soft tissue structures. Surgical clips in the pelvis likely from tubal ligation. Normal bilateral iliac wings, sacroiliac joints and visualized sacrum. Normal bilateral superior and inferior pubic rami. Normal pubic symphysis. Normal bilateral ischial tuberosities. Normal visualized femoral head. Normal acetabulum. Normal hip joint. RAD/HIP, UNI W/ Pelvis 2-3 Views IMPRESSION: Normal x-ray examination of the pelvis and hip. Electronically Signed: Steven Llamas DO at 23:56 EDT Tel [phone], Service support , CC: Althea Muñoz NP; Jeannie Ramirez MD Fermenter Champagne: Signed PROGRESS Observed: 07/28/2017 Status: COMPLETED Source: [place] 8:[address] [facility] [place] REPOSITORY HNO ID: [id number] Author: Shirley (Implant Coordinator) Martin Service: (none) Author Type: Nurse Practitioner Type: Progress Notes Filed: 07/28/2017 8:29 AM Note Text: Subjective HPI Nena Goins is a 56 year old female who presents with itching on the bottom of her left foot. She had this last year and used clotrimazole spray with success. She feels it is related to her work boots she has to wear which make her feet sweat a lot. Review of Systems Constitutional: Negative. Negative for fever. Musculoskeletal: Negative. Skin: Positive for itching. Negative for rash. BP 124/84 Pulse 78 Temp 36.3 ?C (97.3 ?F) (Tympanic) Resp 16 Wt 92.5 kg (204 lb) BMI 37.30 kg/m? PAST MEDICAL HISTORY Diagnosis Date - Esophageal reflux PAST SURGICAL HISTORY Procedure Laterality Date - COLONOSCOP W/ OR W/O [facility] SPEC 08/08/14 Colonoscopy - LIGATE FALLOPIAN TUBE Tubal ligation - REMOVAL OF TONSILS,<12 Y/O Tonsillectomy - REPAIR INCISIONAL HERNIA,REDUCIBLE AGE 7 Hernia repair, incisional - TOTAL ABDOM HYSTERECTOMY 2003 ovaries remain ALLERGIES Patient has no known allergies. MEDICATIONS Valsartan-Hydrochlorothiazide 80-12.5 mg per tablet Take 1 tablet by mouth once daily. CPAP Initiate Auto PAP @ 5-20 cm of water with humidification. Mask (per patient preference) optional chin strap (if indicated) , filters, tubing, humidifier and lifetime supplies. zolpidem (AMBIEN) 10 mg tab Take 1 tablet by mouth at bedtime as needed (for insomnia) for up to 30 days. ibuprofen (MOTRIN) 800 mg tablet TAKE 1 TABLET BY MOUTH EVERY 8 HOURS NEEDED FOR PAIN. TAKE WITH FOOD. cyclobenzaprine (FLEXERIL) 10 mg tablet Take 1 tablet by mouth twice daily as needed. clotrimazole (LOTRIMIN, CLOTRIM) 1 % cream Apply 1 application to affected area twice daily. Clotrimazole 1 % spry Apply 1 application to affected area daily at bedtime. FAMILY HISTORY Problem Relation Age of Onset - Diabetes Mother - Cancer Father cancer of prostate Social History Substance Use Topics - Smoking status: Former Smoker Packs/day: 0.50 Years: 5.00 Types: Cigarettes Quit date: 03/14/2009 - Smokeless tobacco: Never Used - Alcohol use No Objective Physical Exam Constitutional: She is well-developed, well-nourished, and in no distress. Musculoskeletal: Feet: Skin: Skin is warm and dry. No rash noted. No erythema. Nursing note and vitals reviewed. ASSESSMENT/PLAN: 1. Athlete's foot on left - ICD9: 110.4, ICD10: B35.3 - Treat with clotrimazole twice a day until rash resolves and then another week - Keep area of concern very dry. Ok to use OTC antifungal powder if area is moist - Follow up with PCP if symptoms persist or do not improved after 4-6 weeks of treatment. - CLOTRIMAZOLE 1 % TOPICAL CREAM - CLOTRIMAZOLE 1 % TOPICAL SPRAY - Follow-up with your PCP in 3-5 days if symptoms have not improved or sooner if symptoms worsen - Discussed red flags and need for immediate medical evaluation if any occur. - Discussed supportive care treatment with fluids, rest and analgesia. - Discussed expected course of illness Shirley Salazar APRN.ESTELITA MARTINEZOV Observed: 07/28/2017 Status: COMPLETED Source: [place] 7:45 AM [facility] REPOSITORY Office Visit ([facility]) NENA GOINS ([id number]) 1960 F T Date Time Provider Department 07/28/17 7:45 AM SHIRLEY SALAZAR (ESTELITA) [facility] During your visit today, we recorded the following information about you: Temperature Pulse Respiration Blood pressure 97.3 degrees 78/minute 16/minute 124/84 Weight 92.5 kg Shirley Salazar APRN.CNP 07/28/2017 8:05 AM Signed TINEA PEDIS (ATHLETESFOOT): Your exam shows you have athlete?s foot, a fungus infection that usually starts between the toes. This condition is made worse by heat, moisture, and friction. To treat it you should wash your feet 2-3 times daily, drying well especially between the toes. Wear cotton socks to absorb sweat and change them twice a day if possible. You should allow your feet to be open to the air as much as possible and wear sandals when possible. To treat ahtlete?s foot, use hkjq-vge-kebmmim medicated foot powder or cream such as Lotrimin or Micatin as directed on the package. Prescription creams or lotions such as Exelderm, Lamisil, Loprox, or Oxistat may be needed. You should continue this treatment for at least a week after all symptoms are gone. Antibiotics are needed sometimes to treat secondary bacterial infection. See your doctor if you are not improved after one week of treatment. Shirley Salazar APRN.CNP 07/28/2017 8:29 AM Signed Subjective HPI Nena Goins is a 56 year old female who presents with itching on the bottom of her left foot. She had this last year and used clotrimazole spray with success. She feels it is related to her work boots she has to wear which make her feet sweat a lot. Review of Systems Constitutional: Negative. Negative for fever. Musculoskeletal: Negative. Skin: Positive for itching. Negative for rash. BP 124/84 Pulse 78 Temp 36.3 ?C (97.3 ?F) (Tympanic) Resp 16 Wt 92.5 kg (204 lb) BMI 37.30 kg/m? PAST MEDICAL HISTORY Diagnosis Date - Esophageal reflux PAST SURGICAL HISTORY Procedure Laterality Date - COLONOSCOP W/ OR W/O [facility] SPEC 08/08/14 Colonoscopy - LIGATE FALLOPIAN TUBE Tubal ligation - REMOVAL OF TONSILS,<12 Y/O Tonsillectomy - REPAIR INCISIONAL HERNIA,REDUCIBLE AGE 7 Hernia repair, incisional - TOTAL ABDOM HYSTERECTOMY 2002 ovaries remain ALLERGIES Patient has no known allergies. MEDICATIONS Valsartan-Hydrochlorothiazide 80-12.5 mg per tablet Take 1 tablet by mouth once daily. CPAP Initiate Auto PAP @ 5-20 cm of water with humidification. Mask (per patient preference) optional chin strap (if indicated) , filters, tubing, humidifier and lifetime supplies. zolpidem (AMBIEN) 10 mg tab Take 1 tablet by mouth at bedtime as needed (for insomnia) for up to 30 days. ibuprofen (MOTRIN) 800 mg tablet TAKE 1 TABLET BY MOUTH EVERY 8 HOURS NEEDED FOR PAIN. TAKE WITH FOOD. cyclobenzaprine (FLEXERIL) 10 mg tablet Take 1 tablet by mouth twice daily as needed. clotrimazole (LOTRIMIN, CLOTRIM) 1 % cream Apply 1 application to affected area twice daily. Clotrimazole 1 % spry Apply 1 application to affected area daily at bedtime. FAMILY HISTORY Problem Relation Age of Onset - Diabetes Mother - Cancer Father cancer of prostate Social History Substance Use Topics - Smoking status: Former Smoker Packs/day: 0.50 Years: 5.00 Types: Cigarettes Quit date: 03/14/2009 - Smokeless tobacco: Never Used - Alcohol use No Objective Physical Exam Constitutional: She is well-developed, well-nourished, and in no distress. Musculoskeletal: Feet: Skin: Skin is warm and dry. No rash noted. No erythema. Nursing note and vitals reviewed. ASSESSMENT/PLAN: 1. Athlete's foot on left - ICD9: 110.4, ICD10: B35.3 - Treat with clotrimazole twice a day until rash resolves and then another week - Keep area of concern very dry. Ok to use OTC antifungal powder if area is moist - Follow up with PCP if symptoms persist or do not improved after 4-6 weeks of treatment. - CLOTRIMAZOLE 1 % TOPICAL CREAM - CLOTRIMAZOLE 1 % TOPICAL SPRAY - Follow-up with your PCP in 3-5 days if symptoms have not improved or sooner if symptoms worsen - Discussed red flags and need for immediate medical evaluation if any occur. - Discussed supportive care treatment with fluids, rest and analgesia. - Discussed expected course of illness Shirley Salazar APRN.CHIEF HUMAN RESOURCES OFFICER Referring Provider: SELF [[id number]] Allergies As of Date: 07/28/2017 (No Known Allergies) Date Reviewed: 07/28/2017 Reviewed by: Sheeba Trimble Ma - Fully Assessed Reason for Visit: Itching [97174] Cmt: left foot x 1 week, rash Primary Visit Diagnosis:Athlete's foot on left [B35.3] Order(s):clotrimazole (LOTRIMIN, CLOTRIM) 1 % creamApply 1 application to affected area twice daily.Disp: 45 gRfl: 0 Clotrimazole 1 % spryApply 1 application to affected area daily at bedtime.Disp: 60 mLRfl: 0 Prescriptions as of 07/28/2017 Sig: VALSARTAN 80 MG-HYDROCHLOROTH* Take 1 tablet by mouth once d* CPAP Initiate Auto PAP @ 5- 20 cm o* ZOLPIDEM 10 MG TABLET Take 1 tablet by mouth at bed* IBUPROFEN 800 MG TABLET TAKE 1 TABLET BY MOUTH EVERY * CYCLOBENZAPRINE 10 MG TABLET Take 1 tablet by mouth twice * CLOTRIMAZOLE 1 % TOPICAL CREAM Apply 1 application to affect* CLOTRIMAZOLE 1 % TOPICAL SPRAY Apply 1 application to affect* Problem List As Of Date 07/28/2017 Noted Resolved DYSMENORRHEA [N94.6] SEBORRHEIC KERATOSIS NOS [L82.1] INVALID FOR* SEBORRHEIC KERATOSIS INFLAMED [L82.0] INVALID FOR* CHR SOLAR SKIN DAMAGE NOS [L57.8] INVALID FOR* ESOPHAGEAL REFLUX [K21.9] Obesity [E66.9] INVALID FOR* HLD (hyperlipidaemia) [E78.5] INVALID FOR* Special screening for malignant neoplasms, colo*INVALID FOR*2014 Bilateral low back pain with left-sided sciatic*INVALID FOR* Other instructions from your clinician: TINEA PEDIS (ATHLETESFOOT): Your exam shows you have athlete?s foot, a fungus infection that usually starts between the toes. This condition is made worse by heat, moisture, and friction. To treat it you should wash your feet 2- 3 times daily, drying well especially between the toes. Wear cotton socks to absorb sweat and change them twice a day if possible. You should allow your feet to be open to the air as much as possible and wear sandals when possible. To treat ahtlete?s foot, use dzam-htv-vqocits medicated foot powder or cream such as Lotrimin or Micatin as directed on the package. Prescription creams or lotions such as Exelderm, Lamisil, Loprox, or Oxistat may be needed. You should continue this treatment for at least a week after all symptoms are gone. Antibiotics are needed sometimes to treat secondary bacterial infection. See your doctor if you are not improved after one week of treatment. Prescriptions ordered this encounter Disp Refills Start End CLOTRIMAZOLE 1 % TOPICAL CREAM 45 g 0 07/28/2017 Route: TOPICAL Sig: Apply 1 application to affected area twice daily. CLOTRIMAZOLE 1 % TOPICAL SPRAY 60 mL 0 07/28/2017 Route: TOPICAL Sig: Apply 1 application to affected area daily at bedtime. Encounter Status:Closed by SHIRLEY SALAZAR on 07/28/17 PROGRESS Observed: 07/20/2017 Status: COMPLETED Source: [place] 10:08 AM [facility] REPOSITORY [facility] ID: [id number] Author: Aylin Mccormick LPN Service: (none) Author Type: (none) Type: Progress Notes Filed: 07/20/2017 11:04 AM Note Text: Manual Readin/104 Pulse: 72 Repeat BP Check: 176/89 P75 #1 159/89 P74 #2 159/91 P75 #3 160/89 P75 #4 161/86 P77 #5 156/88 P74 #6 AVERAGE: 162/89 P: 75 Reason for blood pressure check - Last BP elevated, No medications for BP. Patient is: Taking medication as prescribed NA Took medication today NA If no, date medication last taken NA Experiencing side effects NA Pt denies chest pain, headaches, sob or dizziness. Pt occs drinks coffee but has not had any today. Pt is not a smoker, occs has exposure. Pt is alert AND oriented Pt has been identified by name and birthdate: Yes Allergies reviewed: Yes Latex allergy: no. Medication - prescribed and OTC reviewed and updated: Yes Do you need any prescription refills prior to your next visit: no Health Maintenance: Reviewed and up to date Pt notified she will be contacted after review by PCP. Aylin Mccormick LPN CNNURSE Observed: 07/20/2017 Status: COMPLETED Source: [facility] 9:30 AM [facility] REPOSITORY Nurse Visit (FAMPWS) NENA GOINS ([id number]) 1960 F CHT Date Time Provider Department 07/20/17 9:30 AM [facility] During your visit today, we recorded the following information about you: Pulse Blood pressure 72/minute 162/104 Aylin Mccormick LPN 07/20/2017 11:04 AM Signed Manual Readin/104 Pulse: 72 Repeat BP Check: 176/89 P75 #1 159/89 P74 #2 159/91 P75 #3 160/89 P75 #4 161/86 P77 #5 156/88 P74 #6 AVERAGE: 162/89 P: 75 Reason for blood pressure check - Last BP elevated, No medications for BP. Patient is: Taking medication as prescribed NA Took medication today NA If no, date medication last taken NA Experiencing side effects NA Pt denies chest pain, headaches, sob or dizziness. Pt occs drinks coffee but has not had any today. Pt is not a smoker, occs has exposure. Pt is alert AND oriented Pt has been identified by name and birthdate: Yes Allergies reviewed: Yes Latex allergy: no. Medication - prescribed and OTC reviewed and updated: Yes Do you need any prescription refills prior to your next visit: no Health Maintenance: Reviewed and up to date Pt notified she will be contacted after review by PCP. Aylin Mccormick LPN Referring Provider: NICK JANE ([facility]) [[id number]] Allergies As of Date: 07/20/2017 (No Known Allergies) Date Reviewed: 07/20/2017 Reviewed by: Aylin Mccormick LPN - Fully Assessed Reason for Visit: Blood Pressure Check [195] Visit Diagnosis:Elevated BP without diagnosis of hypertension [R03.0] Prescriptions as of 07/20/2017 Sig: CPAP Initiate Auto PAP @ 5- 20 cm o* IBUPROFEN 800 MG TABLET TAKE 1 TABLET BY MOUTH EVERY * CYCLOBENZAPRINE 10 MG TABLET Take 1 tablet by mouth twice * ZOLPIDEM 10 MG TABLET Take 1 tablet by mouth at bed* Problem List As Of Date 07/20/2017 Noted Resolved DYSMENORRHEA [N94.6] SEBORRHEIC KERATOSIS NOS [L82.1] INVALID FOR* SEBORRHEIC KERATOSIS INFLAMED [L82.0] INVALID FOR* CHR SOLAR SKIN DAMAGE NOS [L57.8] INVALID FOR* ESOPHAGEAL REFLUX [K21.9] Obesity [E66.9] INVALID FOR* HLD (hyperlipidaemia) [E78.5] INVALID FOR* Special screening for malignant neoplasms, colo*INVALID FOR*2014 Bilateral low back pain with left-sided sciatic*INVALID FOR* Encounter Status:Closed by AYLIN MCCORMICK LPN on 07/20/17 PROGRESS Observed: 07/13/2017 Status: COMPLETED Source: [place] 8:01 AM [facility] REPOSITORY [facility] ID: [id number] Author: Nick Jane Service: (none) Author Type: Nurse Practitioner Type: Progress Notes Filed: 07/13/2017 8:35 AM Note Text: CC: No chief complaint on file. LUCY Goins is a 56 year old female who presents today for review of PSG study completed 06/19/17. Patient underwent a PSG study at [facility] after displaying symptoms of snoring and waking with a dry, sore throat. Patient is also considered obese with a BMI of 37.3 She was found to have SARA. Patient continues to express feelings of extreme fatigue. She does work 3rd shift and gets broken sleep throughout the day. She denies any headaches, chest pain, SOB, wheezing, palpitations or edema. IMPRESSION/RECOMMENDATIONS: 1. Severe REM predominant obstructive sleep apnea with a total AHI in the moderate range. Respiratory events were associated with oxygen desaturations to a fabricio of 88%. 2. Sleep-related hypoventilation was noted. There was a >10 mmHg increase in end-tidal CO2 (ETCO2) values during sleep as compared to the baseline wake ETCO2 value of 41 mmHg. The ETCO2 value was >50 mmHg for > 10 minutes during sleep. There may be another underlying cardiopulmonary disorder that explains these findings. Further clinical correlation is advised. 3. Abnormal sleep architecture likely due to respiratory events, medications, and first night effect. REVIEW OF SYSTEMS General: no fevers, no chills, no night sweats, no recurrent infections, no change in appetite, Positive fatigue and weight gain HEENT: no frequent or significant headaches, no changes in hearing, no visual changes, no nose bleeds, no sinus or nasal problems Respiratory: no cough, no wheezing, no shortness of breath, no hemoptysis Cardiovascular: no chest pain, no chest pressure, no palpitations and no swelling Neurologic: No headache, weakness, numbness, tingling, neck stiffness, tremor, vertigo, dizziness, memory loss, syncope. PAST MEDICAL HISTORY Diagnosis Date - Esophageal reflux PAST SURGICAL HISTORY Procedure Laterality Date - COLONOSCOP W/ OR W/O [facility] SPEC 08/08/14 Colonoscopy - LIGATE FALLOPIAN TUBE Tubal ligation - REMOVAL OF TONSILS,<12 Y/O Tonsillectomy - REPAIR INCISIONAL HERNIA,REDUCIBLE AGE 7 Hernia repair, incisional - TOTAL ABDOM HYSTERECTOMY 2002 ovaries remain ALLERGIES Patient has no known allergies. MEDICATIONS zolpidem (AMBIEN) 10 mg tab Take 1 tablet by mouth at bedtime as needed (for insomnia) for up to 30 days. ibuprofen (MOTRIN) 800 mg tablet TAKE 1 TABLET BY MOUTH EVERY 8 HOURS NEEDED FOR PAIN. TAKE WITH FOOD. cyclobenzaprine (FLEXERIL) 10 mg tablet Take 1 tablet by mouth twice daily as needed. FAMILY HISTORY Problem Relation Age of Onset - Diabetes Mother - Cancer Father cancer of prostate Social History Substance Use Topics - Smoking status: Former Smoker Packs/day: 0.50 Years: 5.00 Types: Cigarettes Quit date: 03/14/2009 - Smokeless tobacco: Never Used - Alcohol use No PHYSICAL EXAM There were no vitals taken for this visit. General Appearance: well appearing, in no acute distress, alert Skin: Skin color, texture, turgor normal for age; Head: normocephalic, atraumatic Eyes: conjunctiva pink and moist, no icterus, sclera white, non-injected Lungs: Lungs clear to auscultation. No wheezing, rhonchi, rales Heart: RRR without murmur, gallop, or rubs. No ectopy Bilateral Lower Extremities: No deformities, edema, skin discoloration, clubbing or cyanosis. MAMMOGRAM due on 02/17/2018 COLORECTAL CANCER SCREENING,SEE MODIFIER due on 08/09/2019 DIABETES SCREEN due on 05/03/2020 DTAP,TDAP,TD(2 - Td) due on 02/06/2022 LIPID SCREEN due on 03/02/2022 INFLUENZA Completed HEPATITIS C SCREENING Completed ASSESSMENT/PLAN: 1. SARA (obstructive sleep apnea) - ICD9: 327.23, ICD10: G47.33 (primary diagnosis) - CPAP - CONSULT TO SLEEP MEDICINE - ADULT - Follow up in 2-3 months, sooner for new or worsening symptoms 2. Elevated BP without diagnosis of hypertension - ICD9: 796.2, ICD10: R03.0 Likely PreHypertension - Encouraged dietary sodium restriction/DASH diet - Recommended regular aerobic exercise and diet to reduce risk - Recheck in 1 week, sooner if needed. Nick Jane APRN.CNP Prescription instructions reviewed with patient as applicable. Potential red flag symptoms discussed with the patient. Reviewed appropriate action plan to take if red flag symptoms occur. Patient agreeable to treatment plan. CNOV Observed: 07/13/2017 Status: COMPLETED Source: [place] 8:00 AM [facility] REPOSITORY Office Visit (INTMWS) NENA GOINS ([id number]) 1960 F T Date Time Provider Department 07/13/17 8:00 AM NICK JANE ([facility]) [facility] During your visit today, we recorded the following information about you: Temperature Pulse Respiration Blood pressure 98.3 degrees 73/minute 16/minute 140/90 Weight 92.5 kg Nick Jane APRN.CNP 07/13/2017 8:35 AM Signed CC: No chief complaint on file. HPI Nena Goins is a 56 year old female who presents today for review of PSG study completed 06/19/17. Patient underwent a PSG study at [facility] after displaying symptoms of snoring and waking with a dry, sore throat. Patient is also considered obese with a BMI of 37.3 She was found to have SARA. Patient continues to express feelings of extreme fatigue. She does work 3rd shift and gets broken sleep throughout the day. She denies any headaches, chest pain, SOB, wheezing, palpitations or edema. IMPRESSION/RECOMMENDATIONS: 1. Severe REM predominant obstructive sleep apnea with a total AHI in the moderate range. Respiratory events were associated with oxygen desaturations to a fabricio of 88%. 2. Sleep-related hypoventilation was noted. There was a >10 mmHg increase in end-tidal CO2 (ETCO2) values during sleep as compared to the baseline wake ETCO2 value of 41 mmHg. The ETCO2 value was >50 mmHg for > 10 minutes during sleep. There may be another underlying cardiopulmonary disorder that explains these findings. Further clinical correlation is advised. 3. Abnormal sleep architecture likely due to respiratory events, medications, and first night effect. REVIEW OF SYSTEMS General: no fevers, no chills, no night sweats, no recurrent infections, no change in appetite, Positive fatigue and weight gain HEENT: no frequent or significant headaches, no changes in hearing, no visual changes, no nose bleeds, no sinus or nasal problems Respiratory: no cough, no wheezing, no shortness of breath, no hemoptysis Cardiovascular: no chest pain, no chest pressure, no palpitations and no swelling Neurologic: No headache, weakness, numbness, tingling, neck stiffness, tremor, vertigo, dizziness, memory loss, syncope. PAST MEDICAL HISTORY Diagnosis Date - Esophageal reflux PAST SURGICAL HISTORY Procedure Laterality Date - COLONOSCOP W/ OR W/O [facility] SPEC 08/08/14 Colonoscopy - LIGATE FALLOPIAN TUBE Tubal ligation - REMOVAL OF TONSILS,<12 Y/O Tonsillectomy - REPAIR INCISIONAL HERNIA,REDUCIBLE AGE 7 Hernia repair, incisional - TOTAL ABDOM HYSTERECTOMY 2002 ovaries remain ALLERGIES Patient has no known allergies. MEDICATIONS zolpidem (AMBIEN) 10 mg tab Take 1 tablet by mouth at bedtime as needed (for insomnia) for up to 30 days. ibuprofen (MOTRIN) 800 mg tablet TAKE 1 TABLET BY MOUTH EVERY 8 HOURS NEEDED FOR PAIN. TAKE WITH FOOD. cyclobenzaprine (FLEXERIL) 10 mg tablet Take 1 tablet by mouth twice daily as needed. FAMILY HISTORY Problem Relation Age of Onset - Diabetes Mother - Cancer Father cancer of prostate Social History Substance Use Topics - Smoking status: Former Smoker Packs/day: 0.50 Years: 5.00 Types: Cigarettes Quit date: 03/14/2009 - Smokeless tobacco: Never Used - Alcohol use No PHYSICAL EXAM There were no vitals taken for this visit. General Appearance: well appearing, in no acute distress, alert Skin: Skin color, texture, turgor normal for age; Head: normocephalic, atraumatic Eyes: conjunctiva pink and moist, no icterus, sclera white, non-injected Lungs: Lungs clear to auscultation. No wheezing, rhonchi, rales Heart: RRR without murmur, gallop, or rubs. No ectopy Bilateral Lower Extremities: No deformities, edema, skin discoloration, clubbing or cyanosis. MAMMOGRAM due on 02/17/2018 COLORECTAL CANCER SCREENING,SEE MODIFIER due on 08/09/2019 DIABETES SCREEN due on 05/03/2020 DTAP,TDAP,TD(2 - Td) due on 02/06/2022 LIPID SCREEN due on 03/02/2022 INFLUENZA Completed HEPATITIS C SCREENING Completed ASSESSMENT/PLAN: 1. SARA (obstructive sleep apnea) - ICD9: 327.23, ICD10: G47.33 (primary diagnosis) - CPAP - CONSULT TO SLEEP MEDICINE - ADULT - Follow up in 2-3 months, sooner for new or worsening symptoms 2. Elevated BP without diagnosis of hypertension - ICD9: 796.2, ICD10: R03.0 Likely PreHypertension - Encouraged dietary sodium restriction/DASH diet - Recommended regular aerobic exercise and diet to reduce risk - Recheck in 1 week, sooner if needed. Nick Jane APRN.CHIEF HUMAN RESOURCES OFFICER Prescription instructions reviewed with patient as applicable. Potential red flag symptoms discussed with the patient. Reviewed appropriate action plan to take if red flag symptoms occur. Patient agreeable to treatment plan. Referring Provider: JEANNIE RAMIREZ [[id number]] Allergies As of Date: 07/13/2017 (No Known Allergies) Date Reviewed: 07/13/2017 Reviewed by: Radha Angela Ma - Fully Assessed Reason for Visit: Recheck [92] Cmt: Review Sleep study Reason For Visit History Recorded Primary Visit Diagnosis:SARA (obstructive sleep apnea) [G47.33] Other Visit Diagnosis:Elevated BP without diagnosis of hypertension [R03.0] Order(s):CPAPInitiate Auto PAP @ 5-20 cm of water with humidification. Mask (per patient preference) optional chin strap (if indicated) , filters, tubing, humidifier and lifetime supplies.Disp: 1 DeviceRfl: 0 CONSULT TO SLEEP MEDICINE - ADULT [[id number]] Order #: [id number]: 1 Prescriptions as of 07/13/2017 Sig: CPAP Initiate Auto PAP @ 5- 20 cm o* ZOLPIDEM 10 MG TABLET Take 1 tablet by mouth at bed* IBUPROFEN 800 MG TABLET TAKE 1 TABLET BY MOUTH EVERY * CYCLOBENZAPRINE 10 MG TABLET Take 1 tablet by mouth twice * Problem List As Of Date 07/13/2017 Noted Resolved DYSMENORRHEA [N94.6] SEBORRHEIC KERATOSIS NOS [L82.1] INVALID FOR* SEBORRHEIC KERATOSIS INFLAMED [L82.0] INVALID FOR* CHR SOLAR SKIN DAMAGE NOS [L57.8] INVALID FOR* ESOPHAGEAL REFLUX [K21.9] Obesity [E66.9] INVALID FOR* HLD (hyperlipidaemia) [E78.5] INVALID FOR* Special screening for malignant neoplasms, colo*INVALID FOR*2014 Bilateral low back pain with left-sided sciatic*INVALID FOR* Prescriptions ordered this encounter Disp Refills Start End CPAP 1 De* 0 07/13/2017 Class: Print RX Sig: Initiate Auto PAP @ 5-20 cm of water with humidification. Mask (per patient preference) optional chin strap (if indicated) , filters, tubing, humidifier and lifetime supplies. Encounter Status:Closed by NICK JANE CNP on 07/13/17 PROGRESS Observed: 06/20/2017 Status: COMPLETED Source: [place] 4:[address] [facility] REPOSITORY O ID: [id number] Author: Anel King-T Service: (none) Author Type: (none) Type: Progress Notes Filed: 06/20/2017 4:15 AM Note Text: Sleep Study Check-In Documentation Date: June 20, 2017 Name: Nena Albrightgins Patient was accompanied by Self. Location: [facility] Latex allergy: No Tape allergy: No Current medications were reviewed with the patient:Yes Sleep aid taken by patient for the sleep study: [place] of sleep aid: Erichien (NOT FOR PSG) Procedure was explained to the patient and all questions were answered. PAP treatment discussed and shown to patient: Yes Knowledge Program (KP): KP was not completed in [facility] by patient and accepted Study type: Polysomnogram Adverse Event: No (If yes create a new abstract) SERS Event: No Comments: Patient was advised to follow up with their ordering provider regarding test results Anel Soto Davis G[place]ana PROGRESS Observed: 06/19/2017 Status: COMPLETED Source: [place] 9:48 PM [facility] REPOSITORY HNO ID: [id number] Author: Sher Sequeira (Fel) Service: (none) Author Type: Fellow Type: Progress Notes Filed: 06/20/2017 3:43 PM Note Text: June 19, 2017 The electronic medical record was reviewed to determine if the proposed sleep study conforms to the AASM Practice Parameters for the Indications for Polysomnography and Related Procedures, or if the sleep study is indicated for other reasons. Indications for study: SARA suspected without comorbid medical or sleep disorders Sleep study to be performed: Split Study-Polysomnogram with PAP titration Special instructions: Split night study if AHI > 14.9. Start with 5 cmH2O then titrate per protocol Sher Sequeira MD rn call center Sleep Medicine fellow Neurological [facility] pager [phone] Office telephone Number: [phone] For appointments, call: [phone] I have read the above protocol, edited as needed, and agree to the plan Cas Tang III, PhD, FAASM PROGRESS Observed: 05/12/2017 Status: COMPLETED Source: [place] 11:14 AM [facility] REPOSITORY HNO ID: [id number] Author: Mary Sanchez MD Service: (none) Author Type: Physician Type: Progress Notes Filed: 06/20/2017 4:15 AM Note Text: May 12, 2017 The electronic medical record was reviewed to determine if the proposed sleep study conforms to the AASM Practice Parameters for the Indications for Polysomnography and Related Procedures, or if the sleep study is indicated for other reasons. Indications for study: SARA suspected without comorbid medical or sleep disorders Sleep study to be performed: Home Sleep Test (HST) Special instructions: None-follow laboratory protocol Davide Roque RPSGT,RST,BA I have reviewed patient history and indication for the study. I agree with protocol above. Mary Sanchez MD, MPH Pediatric and adult sleep medicine Staff, Pediatric Pulmonary [facility] [id number] PROGRESS Observed: 05/11/2017 Status: COMPLETED Source: [place] 5:31 PM [facility] REPOSITORY HNO ID: [id number] Author: She Nieto Service: (none) Author Type: (none) Type: Progress Notes Filed: 06/20/2017 4:15 AM Note Text: May 11, 2017 An order has been received for Polysomnogram (PSG) from Dr. JEANNIE Vásquez. [facility] Staff. Visit prep complete. Comments :No The sleep study is scheduled for 05/29. Insurance: Payor: [employer] / Plan: CIG OAP / Product Type: Open Access / She Valentinor TSH Collected: 05/03/2017 Status: F Source: [facility] 9:34 AM [facility] REPOSITORY TYPE CODE TESTS RESULT OUT OF RANGE REFERENCE UNITS LAB TSH 0.400-5.500 uU/mL TSH 2.550 Performed By: #### TSH, FT4, T3 #### [facility] [address] [address] FREE T4 Collected: 05/03/2017 Status: F Source: [facility] 9:34 AM [facility] REPOSITORY TYPE CODE TESTS RESULT OUT OF RANGE REFERENCE UNITS LAB FT4 0.9-1.7 ng/dL Free T4 1.0 Performed By: #### TSH, FT4, T3 #### [facility] [address], [place] [address] T3 Collected: 05/03/2017 Status: F Source: [facility] 9:34 AM [facility] REPOSITORY TYPE CODE TESTS RESULT OUT OF RANGE REFERENCE UNITS LAB T3 79-165 ng/dL T3 126 Performed By: #### TSH, FT4, T3 #### [facility] [place] [address] [id number] HEMOGLOBIN A1C Collected: 05/03/2017 Status: F Source: [facility] 9:34 AM [facility] REPOSITORY TYPE CODE TESTS RESULT OUT OF REFERENCE UNITS RANGE LAB HGBA1C 4.3-5.6 % High Hemoglobin A1c 5.7 LAB HBA0 mg/dL Est. Average Glucose 117 Result Comment: eAG: (Estimated average glucose) is a calculated value from HgbA1c and is customer relations representative of the average blood glucose level in the last 2-3 month period. Performed By: #### HBA1C #### [facility] [place] [address], [place] [address] XR HIP 3V PELV+ Observed: 05/03/2017 Status: F Source: [facility] AP/LAT RT 9:22 AM [facility] REPOSITORY * * *Final Report* * * DATE OF EXAM: May 03 2017 9:22AM WOX [id number] - XR HIP 3V PELV+ AP/LAT RT / PROCEDURE REASON: Pain in right hip * * * * Physician Interpretation * * * * HISTORY: 56-YEAR-OLD FEMALE WITH Pain in right hip . Posterior right hip pain that comes and goes following a fall 1 year ago. TECHNIQUE: XR HIP 3V PELV+ AP/LAT RT Laterality: RIGHT Number of different views (projections): 3 COMPARISON: None RESULT: Right hip joint space is maintained with tiny collar marginal osteophytes. Slight overhanging of the acetabulum. Left hip joint space is maintained. Sacroiliac joints are intact. Surgical clips in the pelvis. IMPRESSION: MILD EARLY DEGENERATIVE CHANGES OF THE RIGHT HIP. Fermenter Champagne: PSCB Transcribe Date/Time: May 03 2017 10:07A Dictated by : FE QUIROZ MD This examination was interpreted and the report reviewed and electronically signed by: FE QUIROZ MD on May 03 2017 10:08AM EST [id number] PROGRESS Observed: 05/03/2017 Status: COMPLETED Source: [facility] 9:11 AM [facility] REPOSITORY HNO ID: [id number] Author: Simran Krishna (Rt) Armando Henao Service: (none) Author Type: Manager Supply Chain Planning Type: Progress Notes Filed: 05/03/2017 9:20 AM Note Text: Radiology Service Progress Note PATIENT NAME: Nena Goins DATE OF SERVICE: May 03, 2017 TIME: 9:11 AM PATIENT IDENTITY VERIFICATION COMPLETED USING TWO (2) METHODS: Patient confirmed name verbally and Date of . PATIENT GENDER DATA: Female. status: : No status: NO. PATIENT RELEVANT IMPLANT DATA REVIEWED: Not Applicable RADIOLOGY DEPARTMENT: General X-ray: Exam(s) Completed: Pelvis X-Ray: Pelvis with Hip Right PERIPHERAL IV DATA: Not applicable SIGNED BY: RT Mackenzie May 03, 2017 9:11 AM PROGRESS Observed: 05/03/2017 Status: COMPLETED Source: [facility] 8:52 AM [facility] REPOSITORY HNO ID: [id number] Author: Maria Elena Flannery LPN Service: (none) Author Type: (none) Type: Progress Notes Filed: 05/03/2017 11:22 AM Note Text: 56 year old female here for INACTIVATED INFLUENZA VACCINE. [id number] Season Patient is identified by name and date of : Yes [] CONTRAINDICATIONS color enhanced section Age less than 6 months? No Allergy to eggs, chicken, chicken feathers, or chicken dander? No Allergy to thimerosal (a preservative) or formaldehyde? No History of severe reaction to any vaccine component or a previous dose of influenza vaccination? No History of Guillain-[place] Syndrome within 6 weeks after a previous influenza vaccine? No Current moderate or severe illness? No Current temperature greater or equal to 100.4F? No History of Bone Marrow Transplant in past 6 months or solid organ transplant in the past 3 months ? No [] VERIFICATION color enhanced section Was the answer Yes for any of the above contraindications? No contraindications present. Acceptable to proceed with vaccine. Patient/guardian agrees the above answers are true to the best of their knowledge? Yes Flu vaccine information sheet given? Yes See immunization activity in [facility] for details of immunizations adminstered today. Patient age: [age] year old For The [id number] Flu Season 6-35 months old: Fluzone 0.25 ml - IM (Preservative Free) 3 years of age: Fluzone 0.5 ml - IM (Preservative Free) 3 years and older: Fluzone 0.5 ml- IM-(with Preservatives) 65+ years old: Fluzone High-Dose 0.5 ml - IM (Preservative Free) REMEMBER: If patient is less than 9 years of age and this is the first vaccine of Influenza to be received in any flu season, they should receive a second dose in one months time. PROGRESS Observed: 05/03/2017 Status: COMPLETED Source: [facility] 8:22 AM [facility] REPOSITORY O ID: [id number] Author: Jeannie Ramirez Service: (none) Author Type: Physician Type: Progress Notes Filed: 05/03/2017 11:22 AM Note Text: Reason for Visit Patient presents with: Established Patient: 4 month follow up- sleeping pills Nena Goins is a 56 year old female who presents here today for Above Complaints.. Health Maintenance There are no preventive care reminders to display for this patient. HPI She has gained weight, Has been going to the gym, every morning for an hour, eating has been haphazard because of the work schedule and so has her eating patterns. Has been sleeping broken, not very stressed. Does have hot flashes. Boyfriend notes that she snores a lot and is very tired, sleepy in the day, unable to loose weight She has having hip pain for the past 1 year, been on the same job for the past 21 years, And notes a lot of pushing and pulling. Going to the gym to help her with some strengthening. She has pain in the left ear, with fullness started 3 days ago No problem-specific Assessment AND Plan notes found for this encounter. PAST MEDICAL HISTORY Diagnosis Date - Esophageal reflux PAST SURGICAL HISTORY Procedure Laterality Date - COLONOSCOP W/ OR W/O [facility] SPEC 08/08/14 Colonoscopy - LIGATE FALLOPIAN TUBE Tubal ligation - REMOVAL OF TONSILS,<12 Y/O Tonsillectomy - REPAIR INCISIONAL HERNIA,REDUCIBLE AGE 7 Hernia repair, incisional - TOTAL ABDOM HYSTERECTOMY 2002 ovaries remain FAMILY HISTORY Problem Relation Age of Onset - Diabetes Mother - Cancer Father cancer of prostate Social History Substance Use Topics - Smoking status: Former Smoker Packs/day: 0.50 Years: 5.00 Types: Cigarettes Quit date: 03/14/2009 - Smokeless tobacco: Never Used - Alcohol use No Past medical history, appointments, medications, allergies reviewed. Pertinent Lab/Diagnostic Studies are reviewed and discussed today Current Outpatient Prescriptions: - ibuprofen (MOTRIN) 800 mg tablet - cyclobenzaprine (FLEXERIL) 10 mg tablet - zolpidem (AMBIEN) 10 mg tab Review of Systems CONSTITUTIONAL: No fevers, chills night sweats, unintended weight loss CARDIOVASCULAR: No chest pain, dyspnea, palpitations, orthopnea, PND, ankle edema. PULM: No dyspnea, unexplained cough. GI: No dysphagia/odynophagia, problematic reflux, constipation, diarrhea, changes in stool habits, hematochezia, melena. : No new urinary complaints, including dysuria, gross hematuria or pyuria. NEURO: No new balance problems, peripheral weakness/paresthesias or numbness of concern. Physical Exam BP 138/74 (BP Site: Right Arm, BP Position: Sitting, BP Cuff Size: Large Adult) Pulse 85 Resp 12 Ht 157.5 cm (5' 2) Wt 92.5 kg (204 lb) LMP SpO2 98% BMI 37.31 kg/m2 General appearance: Well appearing, alert, in no acute distress, well nourished. Skin: Skin color, texture, turgor normal, no suspicious rashes or lesions Head: Normocephalic, no masses, lesions, tenderness or abnormalities Ears: R TM - clear with good landmarks, nl light reflex, erythematous, bulging, L TM - erythematous, erythematous streaking, bulging yes: Anicteric sclera. Pupils are equally round and reactive to light. Extraocular movements are intact. Lungs: Lungs clear to auscultation. No wheezing, rhonchi, rales Heart: RRR without murmur, gallop, or rubs. Right hip exam: ROM is normal, extension, flexion, is normal, there is pain in the hip and the ASSESSMENT/PLAN: 1. Right hip pain - ICD9: 719.45, ICD10: M25.551 (primary diagnosis) Need to check if she has arthritis. - XR HIP GENERAL 3V PELV/AP/LAT RT 2. Insomnia, unspecified type - ICD9: 780.52, ICD10: G47.00 - ZOLPIDEM 10 MG TABLET 3. Weight gain - ICD9: 783.1, ICD10: R63.5 - TSH BLD - T3 BLD - T4 FREE/FREE THYROX 4. Perimenopausal - ICD9: 627.2, ICD10: N95.1 5. Dry skin - ICD9: 701.1, ICD10: L85.3 - TSH BLD - T3 BLD - T4 FREE/FREE THYROX 6. Snoring - ICD9: 786.09, ICD10: R06.83 - POLYSOMNOGRAM (PSG)/HOME SLEEP APNEA TESTING (HSAT) 7. Other fatigue - ICD9: 780.79, ICD10: R53.83 - POLYSOMNOGRAM (PSG)/HOME SLEEP APNEA TESTING (HSAT) 8. Daytime sleepiness - ICD9: 780.54, ICD10: R40.0 - POLYSOMNOGRAM (PSG)/HOME SLEEP APNEA TESTING (HSAT) 9. Acute suppurative otitis media of left ear without spontaneous rupture of tympanic membrane, recurrence not specified - ICD9: 382.00, ICD10: H66.002 - Will begin treatment with as per antibiotic as written, see orders 10. Need for vaccination - ICD9: V05.9, ICD10: Z23 - INFLUENZA VACCINE QUADRIVALENT AGE 3 YRS PLUS + IM JEANNIE RAMIREZ MD CNOV Observed: 04/08/2017 Status: COMPLETED Source: [place] 8:15 AM [facility] REPOSITORY Office Visit (WOOB) NENA GOINS ([id number]) 1960 F CHT Date Time Provider Department 04/08/17 8:15 AM NEIDA RADER (ESTELITA) WOOB During your visit today, we recorded the following information about you: Blood pressure Weight Height 146/94 91.2 kg 1.575 m NEIDA RADER CNP 04/08/2017 8:42 AM Signed Nena Goins is a 56 year old who presents for her annual gynecologic exam without complaints. Postmenopausal: Yes 2002 hysterectomy HRT use: No. Last Pap: 2002 normal History of abnormal pap: No Last mammogram: 2016 normal History of abnormal mammogram: No Sexually active: Yes Pain with intercourse: No Postcoital bleeding: No Hot flashes: Yes Night sweats: Yes Vaginal dryness: Yes Obstetric History T0 L1 SAB0 TAB0 Ectopic0 Multiple0 Live Births0 PAST MEDICAL HISTORY Diagnosis Date - Esophageal reflux PAST SURGICAL HISTORY Procedure Laterality Date - COLONOSCOP W/ OR W/O BRSH SPEC 08/08/14 Colonoscopy - LIGATE FALLOPIAN TUBE Tubal ligation - REMOVAL OF TONSILS,ANDlt;14 Y/O Tonsillectomy - REPAIR INCISIONAL HERNIA,REDUCIBLE AGE 7 Hernia repair, incisional - TOTAL ABDOM HYSTERECTOMY 2002 ovaries remain FAMILY HISTORY Problem Relation Age of Onset - Diabetes Mother - Cancer Father cancer of prostate SOCIAL HISTORY Social History Substance Use Topics - Smoking status: Former Smoker Packs/day: 0.50 Years: 5.00 Types: Cigarettes Quit date: 03/14/2009 - Smokeless tobacco: Never Used - Alcohol use No REVIEW OF SYSTEMS Abdomen: No abdominal pain, nausea, vomiting, diarrhea, or constipation. No bloating, early satiety, indigestion, or increased flatulence. Bladder: No dysuria, gross hematuria, urinary frequency, urinary urgency, or incontinence Breast: No breast lumps, nipple d/c, overlying skin changes, redness or skin retraction Allergies and current medication updated:Yes EXAM: There were no vitals taken for this visit. GENERAL: pleasant, female in no apparent distress HEENT: Normocephalic, atraumatic, mucus membranes moist and no lesions NECK: Supple, full range of motion, no adenopathy and thyroid normal DERMATOLOGY: Normal, without lesions, non-icteric and non-hirsute BREAST: soft, non-tender, symmetric, no dominant mass, normal nipple-areolar complex, no lymphadenopathy and no nipple discharge CHEST: Normal inspiratory effort ABDOMEN: soft, non-tender and no masses PELVIC: external genitalia normal, normal Bartholin's glands, urethra, [place]'s glands, no vulvar lesions, good vaginal support, physiologic discharge present, normal appearing perineal body and perianal region, cervix surgically absent BIMANUAL: no adnexal masses, non-tender and uterus surgically absent RECTOVAGINAL: deferred. NEURO: alert and oriented x3,exam grossly non-focal EXTREMITIES: normal ASSESSMENT/PLAN: 1) Health maintenance: Pap/HPV screening no longer needed Mammogram up to date Nutrition, exercise and routine health maintenance exams reviewed. Calcium/Vitamin D supplementation information provided. 2) Follow up one year or sooner as needed NEIDA RADER CNP Referring Provider: SELF [[id number]] Allergies As of Date: 04/08/2017 (No Known Allergies) Date Reviewed: 04/08/2017 Reviewed by: Neida Caruso) Dior - Fully Assessed Primary Visit Diagnosis:Encounter for gynecological examination (general) (routine) without abnormal findings [Z01.419] Other Visit Diagnosis:Encounter for screening mammogram for breast cancer [Z12.31] Order(s):[facility] SCREENING [[id number]] Order #: [id number] FUTURE Prescriptions as of 04/08/2017 Sig: IBUPROFEN 800 MG TABLET TAKE 1 TABLET BY MOUTH EVERY * CYCLOBENZAPRINE 10 MG TABLET Take 1 tablet by mouth twice * ZOLPIDEM 10 MG TABLET Take 1 tablet by mouth at bed* Problem List As Of Date 04/08/2017 Noted Resolved DYSMENORRHEA [N94.6] SEBORRHEIC KERATOSIS NOS [L82.1] INVALID FOR* SEBORRHEIC KERATOSIS INFLAMED [L82.0] INVALID FOR* CHR SOLAR SKIN DAMAGE NOS [L57.8] INVALID FOR* ESOPHAGEAL REFLUX [K21.9] Obesity [E66.9] INVALID FOR* HLD (hyperlipidaemia) [E78.5] INVALID FOR* Special screening for malignant neoplasms, colo*INVALID FOR*2014 Bilateral low back pain with left-sided sciatic*INVALID FOR* Disposition: Return in 1 year (on 04/08/2018) for Annual Exam. Follow-up and Disposition History Recorded Encounter Status:Closed by NEIDA RADER on 04/08/17 PROGRESS Observed: 04/08/2017 Status: COMPLETED Source: [place] 8:[address] [facility] REPOSITORY O ID: [id number] Author: Neida Caruso) Dior Service: (none) Author Type: Nurse Practitioner Type: Progress Notes Filed: 04/08/2017 8:42 AM Note Text: Nena Goins is a 56 year old who presents for her annual gynecologic exam without complaints. Postmenopausal: Yes 2003 hysterectomy HRT use: No. Last Pap: 2002 normal History of abnormal pap: No Last mammogram: 2016 normal History of abnormal mammogram: No Sexually active: Yes Pain with intercourse: No Postcoital bleeding: No Hot flashes: Yes Night sweats: Yes Vaginal dryness: Yes Obstetric History T0 L1 SAB0 TAB0 Ectopic0 Multiple0 Live Births0 PAST MEDICAL HISTORY Diagnosis Date - Esophageal reflux PAST SURGICAL HISTORY Procedure Laterality Date - COLONOSCOP W/ OR W/O BRSH SPEC 08/08/14 Colonoscopy - LIGATE FALLOPIAN TUBE Tubal ligation - REMOVAL OF TONSILS,<14 Y/O Tonsillectomy - REPAIR INCISIONAL HERNIA,REDUCIBLE AGE 7 Hernia repair, incisional - TOTAL ABDOM HYSTERECTOMY 2002 ovaries remain FAMILY HISTORY Problem Relation Age of Onset - Diabetes Mother - Cancer Father cancer of prostate SOCIAL HISTORY Social History Substance Use Topics - Smoking status: Former Smoker Packs/day: 0.50 Years: 5.00 Types: Cigarettes Quit date: 03/14/2009 - Smokeless tobacco: Never Used - Alcohol use No REVIEW OF SYSTEMS Abdomen: No abdominal pain, nausea, vomiting, diarrhea, or constipation. No bloating, early satiety, indigestion, or increased flatulence. Bladder: No dysuria, gross hematuria, urinary frequency, urinary urgency, or incontinence Breast: No breast lumps, nipple d/c, overlying skin changes, redness or skin retraction Allergies and current medication updated:Yes EXAM: There were no vitals taken for this visit. GENERAL: pleasant, female in no apparent distress HEENT: Normocephalic, atraumatic, mucus membranes moist and no lesions NECK: Supple, full range of motion, no adenopathy and thyroid normal DERMATOLOGY: Normal, without lesions, non-icteric and non-hirsute BREAST: soft, non-tender, symmetric, no dominant mass, normal nipple-areolar complex, no lymphadenopathy and no nipple discharge CHEST: Normal inspiratory effort ABDOMEN: soft, non-tender and no masses PELVIC: external genitalia normal, normal Bartholin's glands, urethra, [place]'s glands, no vulvar lesions, good vaginal support, physiologic discharge present, normal appearing perineal body and perianal region, cervix surgically absent BIMANUAL: no adnexal masses, non-tender and uterus surgically absent RECTOVAGINAL: deferred. NEURO: alert and oriented x3,exam grossly non-focal EXTREMITIES: normal ASSESSMENT/PLAN: 1) Health maintenance: Pap/HPV screening no longer needed Mammogram up to date Nutrition, exercise and routine health maintenance exams reviewed. Calcium/Vitamin D supplementation information provided. 2) Follow up one year or sooner as needed NEIDA RADER CNP ALLERGIES ALLERGIES DATE TYPE / CODE NAME / CODE REACTION SEVERITY SOURCE Drug NO KNOWN [facility] Class/36678 ALLERGIES Main [place] 1003(SNOMED Repository CT) ENCOUNTERS ENCOUNTERS ADMIT/DISCHARGE ACCOUNT ADMITTING ENCOUNTER LOCATION SOURCE NUMBER CLASS 03/28/2018/03/28/[id number] Main [place] Repository 03/24/2018/03/24/[id number] Repository 03/21/2018 [id number] [facility] ing:LABSPEC Repository 02/24/2018/02/25/[id number] Repository 02/23/2018 [id number] [facility] ing:LABSPEC Repository 02/10/2018/02/11/[id number] Repository 01/10/2018 [id number] [facility] ing:LABSPEC Repository 12/21/2017/12/23/[id number] Repository 12/16/2017/12/20/[id number] Repository 10/24/2017 [id number] [facility] ing:HPRAD Repository 07/28/2017/07/29/19 [id number] Ambulatory [address] Repository 07/20/2017/07/22/19 [id number] Ambulatory [address] Main [place] Repository 07/13/2017/07/15/19 [id number] Ambulatory [address] Repository 06/19/2017/07/06/19 [id number] Ambulatory [address] Other [place] Repository 05/03/2017/05/03/19 [id number] Ambulatory [address] Repository 05/03/2017/05/03/19 [id number] Ambulatory [address] Repository 05/03/2017/05/03/19 [id number] Ambulatory [address] Repository 04/08/2017/04/12/19 [id number] Ambulatory [address] Repository PAYERS PAYERS ENCOUNTER GUARANTOR PAYER SUBSCRIBER SOURCE 03/21/2018 NENA GOINS501 Primary NENA PERDUE [address]AP[address] Insurance:CIGNARomana VIRGENOB: [place] Number: [id number] [address]Oaf: 330 [id number] Repository [phone] () Date:0830-82-45[address], [place] [address]HN: 03/21/2018 Secondary NOT GIVENUNK [place] Insurance:SELF PAY [facility] Number: Effective Repository Date:2018-03-21 02/23/2018 NENA ALMENDAREZ1 Primary NENA PERDUE [address]AP[address] Insurance:Margarita VIRGENOB: [place], [place] Number: [id number] [id number]: (330 [id number] Repository [phone] () Date:3618-83-53[address], [place] [address]NH: 02/23/2018 Secondary NOT GIVENUNK [place] Insurance:SELF PAY [facility] Number: Effective Repository Date:2018-02-23 01/10/2018 NENA GOINS501 Primary NENA PERDUE [address] Insurance:CIGCorey REINOSOPROB: [place] Number: [id number] [id number]: 330 [id number] Repository [phone] () Date:9792-29-17[address], [place] [address]HR: 01/10/2018 Secondary NOT GIVENUNK [place] Insurance:SELF PAY [facility] Number: Effective Repository Date:2018-01-10 10/24/2017 Nena Goins501 [address] Insurance:Margarita VirgenOB: [place], [place] Number: [id number] [id number]: ([phone]) [id number] Repository [phone] () Date:6977-99-17[address], [place] [address]HF: 10/24/2017 Secondary NOT GIVENUNK [place] Insurance:SELF PAY [facility] Number: Effective Repository Date:2017-10-24
== END ==
PROVIDERS: Family Provider Internal Medicine; PCP Internal Medicine; Referring Provider Dermatology; Visit Provider Dermatology
DX: L66.8 Other cicatricial alopecia (principal); L30.8 Other specified dermatitis
CPT/HCPCS: 87070; 87077; 87186; 87205

== ENCOUNTER → 2018-03-21 10:20 | Outpatient (CLI) | payer OTHER, SELFPAY | PROVIDERS: Family Provider Internal Medicine; PCP Internal Medicine; Referring Provider Dermatology; Visit Provider Dermatology | DX: L66.8 Other cicatricial alopecia (principal) | CPT/HCPCS: 87070; 87077; 87106; 87205 ==